=== PATIENT | male | born 1960 | race Caucasian/White ===

== ENCOUNTER 2016-10-24 09:57 | Day surgery (SDC) | payer OTHER ==
[~2016-10-24] VITALS: Ht 177.8 cm; Wt 90.7 kg
[~2016-10-24 09:57] MED LIST: ALPRAZOLAM0.25 MG PO; AMLODIPINE BESY10 MG PO; APRESOLINE100 MG PO; APRESOLINE25 MG PO; APRESOLINE50 MG PO; ASPIR 8181 M1 PO; ASPIR-LOW81 MG PO; ASPIR-TRIN325 M1 PO; Aspirin E.C. PO; CARDURA4 MG PO; CARVEDILOL25 MG PO; CATAPRES-TTS 21 EACH TD; CLINDAMYCIN HC300 MG PO; CLONIDINE1 EAC1 TD; CLOPIDOGREL75 MG PO; COREG25 M1 PO; CORTISPORIN BOTH EYES; Coreg PO; DOXAZOSIN MESYLA4 MG PO; DRONABINOL2.5 MG PO; ERGOCALCIF50000 UNIT PO; ESSENTIAL DAIL1 EACH PO; FENOFIBRATE54 M1 PO; FLORINEF ACETA0.1 MG PO; Florinef Acetate PO; HYDRALAZINE HC100 MG PO; HYDROCHLOROTHIA25 MG PO; ISORDIL,SORBITR20 MG PO; ISOSORBIDE DINI10 MG PO; ISOSORBIDE MONO20 MG PO; KEPPRA250 MG PO; LABETALOL HCL200 MG PO; LABETALOL HCL300 MG PO; LEXAPRO10 MG PO; LEXAPRO20 MG PO; LIPITOR40 MG PO; LOFIBRA54 MG PO; LOVASTATIN40 MG PO; LOW DOSE ASPIRI81 M1 PO; Lofibra PO; MEVACOR40 MG PO; Mucomyst,Mucosol 20% PO; NEPHRO-VITE,1 TABLET PO; NICOTINE PATCH1 EAC2 TD; NORMODYNE,TRAN200 MG PO; NORVASC10 MG PO; NORVASC5 MG PO; Normodyne,Trandate PO; Norvasc PO; PANTOPRAZOLE SO40 MG PO; PLAVIX; PLAVIX75 MG PO; PRAVACHOL20 MG PO; PRAVACHOL80 MG PO; PROTONIX40 MG PO; Phoslo PO; Protonix PO; RENVELA800 MG PO; SIMVASTATIN40 MG PO; TOPROL XL50 MG PO; TRICOR48 MG PO; VIT D2 PO; VITAMIN D250000 UNIT PO; VITAMIN D5000 INTUN PO; Vicodin,Lortab 5/500 PO; Vitamin D, Drisdol PO; ZESTRIL20 MG PO; ZOLOFT50 MG PO; Zestril,Prinivil PO
== END 2016-10-24 11:26 | disposition home or self-care (01) ==
LOC: CATH 09:57
DX: I15.0 Renovascular hypertension (principal); I70.1 Atherosclerosis of renal artery; I70.211 Atherosclerosis of native arteries of extremities with intermittent claudication, right leg; I70.92 Chronic total occlusion of artery of the extremities; Z86.73 Personal history of transient ischemic attack (TIA), and cerebral infarction without residual deficits; I71.4 Abdominal aortic aneurysm, without rupture
CPT/HCPCS: C1725; C1750; C1760; C1769; C1894; J1644; J2250; J3010; S0020

== ENCOUNTER 2016-10-31 14:48 | Inpatient (IN) | payer OTHER ==
[~2016-10-31] VITALS: Ht 182.9 cm; Wt 97.7 kg
[2016-10-31 16:14] LABS: BASOPHIL COUNT 0.1 K/uL (0-0.1); EOSINOPHIL (%) 3.9 % (0-5); EOSINOPHIL COUNT 0.5 K/uL (0-0.3); HEMATOCRIT 48.7 % (38.0-50.0); IMMATURE GRANULOCYTE (%) 0.3 % (0.0-0.7); IMMATURE GRANULOCYTE COUNT 0.4 K/uL; MCH 29.3 PG (29.0-34.0); MCHC 34.3 G/DL (30.0-36.0); MCV 85.6 FL (86-99); MEAN PLAT.VOLUME 9.7 uM^3 (9.0-12.4); MONOCYTE (%) 4.1 % (3-12); MONOCYTE COUNT 0.5 K/uL (0-0.8); NEUTROPHIL (%) 74.5 % (45-76); NEUTROPHIL COUNT 8.9 K/uL (1.8-6.4); PLATELET COUNT 256 K/uL (156-360); RBC DIS.WIDTH-CV 14.2 % (11.8-14.6); RBC DIS.WIDTH-SD 44.6 % (39-53); RED BLOOD COUNT 5.69 M/uL (4.00-5.50)
[2016-10-31 16:19] LABS: WHITE BLOOD COUNT 11.9 K/uL (4.1-10.2)
[2016-10-31 16:23] LABS: CHLORIDE 105 mEq/L (99-109); POTASSIUM 4.5 mEq/L (3.7-5.4); SODIUM 139 mEq/L (136-147)
[2016-10-31 16:25] LABS: GLUCOSE 126 mg/dL (70-99)
[2016-10-31 16:26] LABS: ANION GAP 8 MEQ/L (2-14)
[2016-10-31 16:27] LABS: TOTAL BILIRUBIN 0.3 mg/dL (0.0-1.0)
[2016-10-31 16:28] LABS: ALKALINE PHOSPHATASE 124 IU/L (3-129)
[2016-10-31 16:29] LABS: GFR ESTIMATE (CALCULATED) 29 mL/min/
[2016-10-31 16:30] LABS: UREA NITROGEN (BUN) 24 mg/dL (9-23)
[2016-10-31 16:35] LABS: TROP-I INTERPRETATION NEGATIVE; TROPONIN-I 0.09 ng/mL (0.0-0.30)
[2016-10-31 16:38] LABS: INTER. NORMALIZED RATIO 1.1; PROTHROMBIN TIME 10.7 (9.2-11.2); PTT 29.9 (25-32)
[2016-10-31] MEDS ORDERED: APRESOLINE50 MG PO (19:43)
[2016-10-31] MEDS ORDERED: ISOSORBIDE DINI20 MG PO (19:44)
[2016-11-01] VITALS (13 sets, daily range): BP systolic 164–2110; BP diastolic 76–111
[2016-11-01 04:28] LABS: ADD MIUA? YES; BILIRUBIN NEGATIVE; BLOOD SMALL; COLOR YELLOW ((YELLOW)); GLUCOSE (STRIP) NEGATIVE; KETONES NEGATIVE; LEUKOCYTES NEGATIVE; NITRITE NEGATIVE; PROTEIN (STRIP) 100; SPECIFIC GRAVITY 1.017 (1.000-1.030); UROBILINOGEN 0.2 MG/DL (0.2-1.0)
[2016-11-01 04:32] LABS: BACTERIA RARE /HPF; EPITHELIAL CELLS RARE /HPF; HYALINE CASTS 0-5 /LPF; MUCUS TRACE /LPF; UCUL ADDED? NO; WHITE BLOOD CELLS 0-5 /HPF (0-5)
[2016-11-01 08:05] LABS: EOSINOPHIL (%) 0.8 % (0-5); EOSINOPHIL COUNT 0.1 K/uL (0-0.3); HEMATOCRIT 48.6 % (38.0-50.0); IMMATURE GRANULOCYTE (%) 0.5 % (0.0-0.7); IMMATURE GRANULOCYTE COUNT 0.1 K/uL; LYMPHOCYTE COUNT 1.8 K/uL (1.0-2.8); MCH 30.2 PG (29.0-34.0); MCHC 34.6 G/DL (30.0-36.0); MCV 87.4 FL (86-99); MEAN PLAT.VOLUME 10.6 uM^3 (9.0-12.4); MONOCYTE (%) 6.3 % (3-12); MONOCYTE COUNT 0.8 K/uL (0-0.8); NEUTROPHIL (%) 77.8 % (45-76); NEUTROPHIL COUNT 9.6 K/uL (1.8-6.4); PLATELET COUNT 216 K/uL (156-360); RBC DIS.WIDTH-CV 14.2 % (11.8-14.6); RED BLOOD COUNT 5.56 M/uL (4.00-5.50); WHITE BLOOD COUNT 12.3 K/uL (4.1-10.2)
[2016-11-01 08:09] LABS: ALKALINE PHOSPHATASE 112 IU/L (3-129); ANION GAP 12 MEQ/L (2-14); CHLORIDE 105 MEQ/L (99-109); DIRECT BILIRUBIN 0.1 mg/dL (0.0-0.3); GFR ESTIMATE (CALCULATED) 18 mL/min/; GLUCOSE 121 mg/dL (70-99); POTASSIUM 4.7 MEQ/L (3.7-5.4); SAMPLE HEMOLYSIS CHECK 0; SAMPLE ICTERIC CHECK 0; SAMPLE LIPEMIA CHECK 0; SODIUM 139 MEQ/L (136-147); TOTAL BILIRUBIN 0.3 MG/DL (0.0-1.0); UREA NITROGEN (BUN) 33 mg/dL (9-23)
[2016-11-02] VITALS (7 sets, daily range): BP systolic 138–207; BP diastolic 73–103
[2016-11-02 08:01] LABS: HEMATOCRIT 46.2 % (38.0-50.0); MCH 30.1 PG (29.0-34.0); MCHC 34.4 G/DL (30.0-36.0); MCV 87.5 FL (86-99); PLATELET COUNT 199 K/uL (156-360); RBC DIS.WIDTH-CV 14.6 % (11.8-14.6); RBC DIS.WIDTH-SD 46.2 % (39-53); RED BLOOD COUNT 5.28 M/uL (4.00-5.50); WHITE BLOOD COUNT 14.9 K/uL (4.1-10.2)
[2016-11-02 08:43] LABS: ANION GAP 14 MEQ/L (2-14); CHLORIDE 105 MEQ/L (99-109); GFR ESTIMATE (CALCULATED) 10 mL/min/; GLUCOSE 125 mg/dL (70-99); POTASSIUM 4.2 MEQ/L (3.7-5.4); SAMPLE HEMOLYSIS CHECK 0; SAMPLE ICTERIC CHECK 0; SAMPLE LIPEMIA CHECK 0; SODIUM 139 MEQ/L (136-147)
[2016-11-02 08:52] LABS: UREA NITROGEN (BUN) 54 mg/dL (9-23)
[2016-11-03] VITALS: BP 115/59; BP 125/58; BP 128/58; BP 97/50
[2016-11-03 03:30] VITALS: BP 162/71
[2016-11-03 07:14] LABS: HEMATOCRIT 41.2 % (38.0-50.0); MCH 29.9 PG (29.0-34.0); MCHC 34.7 G/DL (30.0-36.0); MEAN PLAT.VOLUME 10.4 uM^3 (9.0-12.4); PLATELET COUNT 196 K/uL (156-360); RBC DIS.WIDTH-CV 14.7 % (11.8-14.6); RBC DIS.WIDTH-SD 46.2 % (39-53); RED BLOOD COUNT 4.79 M/uL (4.00-5.50); WHITE BLOOD COUNT 11.6 K/uL (4.1-10.2)
[2016-11-03 07:45] LABS: ANION GAP 15 MEQ/L (2-14); CHLORIDE 103 MEQ/L (99-109); GFR ESTIMATE (CALCULATED) 8 mL/min/; GLUCOSE 101 mg/dL (70-99); POTASSIUM 4.2 MEQ/L (3.7-5.4); SAMPLE HEMOLYSIS CHECK 0; SAMPLE ICTERIC CHECK 0; SAMPLE LIPEMIA CHECK 0; SODIUM 138 MEQ/L (136-147); UREA NITROGEN (BUN) 74 mg/dL (9-23)
[2016-11-03 11:20] VITALS: BP 135/65
[2016-11-03 16:50] VITALS: BP 145/67
[2016-11-03 20:45] VITALS: BP 190/90
[2016-11-04 03:38] VITALS: BP 117/77
[2016-11-04 07:03] LABS: ANION GAP 14 MEQ/L (2-14); CHLORIDE 104 MEQ/L (99-109); GFR ESTIMATE (CALCULATED) 7 mL/min/; GLUCOSE 80 mg/dL (70-99); POTASSIUM 4.3 MEQ/L (3.7-5.4); SAMPLE HEMOLYSIS CHECK 0; SAMPLE ICTERIC CHECK 0; SAMPLE LIPEMIA CHECK 0; SODIUM 135 MEQ/L (136-147); UREA NITROGEN (BUN) 90 mg/dL (9-23)
[2016-11-04 07:46] VITALS: BP 187/85
[2016-11-04 11:38] VITALS: BP 175/79
[2016-11-04 21:00] VITALS: BP 205/100
[2016-11-05] VITALS: BP 160/78
[2016-11-05 04:00] VITALS: BP 144/70
[2016-11-05 06:15] LABS: EOSINOPHIL (%) 2.9 % (0-5); EOSINOPHIL COUNT 0.2 K/uL (0-0.3); HEMATOCRIT 38.2 % (38.0-50.0); IMMATURE GRANULOCYTE (%) 0.8 % (0.0-0.7); IMMATURE GRANULOCYTE COUNT 0.1 K/uL; LYMPHOCYTE COUNT 1.6 K/uL (1.0-2.8); MCHC 34.3 G/DL (30.0-36.0); MCV 84.7 FL (86-99); MEAN PLAT.VOLUME 9.7 uM^3 (9.0-12.4); MONOCYTE (%) 4.4 % (3-12); MONOCYTE COUNT 0.3 K/uL (0-0.8); NEUTROPHIL (%) 70.4 % (45-76); NEUTROPHIL COUNT 5.3 K/uL (1.8-6.4); PLATELET COUNT 215 K/uL (156-360); RBC DIS.WIDTH-CV 14.1 % (11.8-14.6); RBC DIS.WIDTH-SD 43.7 % (39-53); RED BLOOD COUNT 4.51 M/uL (4.00-5.50)
[2016-11-05 06:23] LABS: WHITE BLOOD COUNT 7.6 K/uL (4.1-10.2)
[2016-11-05 06:46] LABS: ANION GAP 14 MEQ/L (2-14); CHLORIDE 107 MEQ/L (99-109); GFR ESTIMATE (CALCULATED) 6 mL/min/; GLUCOSE 98 mg/dL (70-99); SAMPLE HEMOLYSIS CHECK 1; SAMPLE ICTERIC CHECK 0; SAMPLE LIPEMIA CHECK 0; SODIUM 137 MEQ/L (136-147)
[2016-11-05 06:56] LABS: UREA NITROGEN (BUN) 111 mg/dL (9-23)
[2016-11-05 07:03] LABS: POTASSIUM ND MEQ/L (3.7-5.4)
[2016-11-05 08:00] VITALS: BP 201/88
[2016-11-05 08:50] LABS: POTASSIUM 5.1 MEQ/L (3.7-5.4)
[2016-11-05 10:20] LABS: TOTAL BILIRUBIN 0.3 MG/DL (0.0-1.0)
[2016-11-05 10:24] LABS: ALKALINE PHOSPHATASE 78 IU/L (3-129)
[2016-11-05 13:51] LABS: HBSG INDEX 0.11
[2016-11-05 13:52] LABS: AHBS INDEX 1.12; HEPATITIS B SURFACE ANTIBODY Nonreactive
[2016-11-05 15:45] VITALS: BP 190/95
[2016-11-05 19:00] VITALS: BP 180/91
[2016-11-05 23:54] VITALS: BP 165/71
[2016-11-06 03:58] VITALS: BP 147/67
[2016-11-06 06:04] LABS: EOSINOPHIL (%) 4.9 % (0-5); EOSINOPHIL COUNT 0.3 K/uL (0-0.3); HEMATOCRIT 39.6 % (38.0-50.0); IMMATURE GRANULOCYTE (%) 1.1 % (0.0-0.7); IMMATURE GRANULOCYTE COUNT 0.1 K/uL; LYMPHOCYTE COUNT 1.6 K/uL (1.0-2.8); MCH 29.9 PG (29.0-34.0); MCHC 35.4 G/DL (30.0-36.0); MCV 84.4 FL (86-99); MEAN PLAT.VOLUME 9.9 uM^3 (9.0-12.4); MONOCYTE (%) 8.1 % (3-12); MONOCYTE COUNT 0.5 K/uL (0-0.8); NEUTROPHIL (%) 60.2 % (45-76); NEUTROPHIL COUNT 3.7 K/uL (1.8-6.4); PLATELET COUNT 209 K/uL (156-360); RED BLOOD COUNT 4.69 M/uL (4.00-5.50); WHITE BLOOD COUNT 6.1 K/uL (4.1-10.2)
[2016-11-06 06:38] LABS: ANION GAP 11 MEQ/L (2-14); CHLORIDE 104 MEQ/L (99-109); GFR ESTIMATE (CALCULATED) 7 mL/min/; GLUCOSE 93 mg/dL (70-99); POTASSIUM 4.8 MEQ/L (3.7-5.4); SAMPLE HEMOLYSIS CHECK 0; SAMPLE ICTERIC CHECK 0; SAMPLE LIPEMIA CHECK 0; SODIUM 138 MEQ/L (136-147); UREA NITROGEN (BUN) 75 mg/dL (9-23)
[2016-11-06 10:24] VITALS: BP 148/70
[2016-11-06 11:42] VITALS: BP 138/74
[2016-11-06] MEDS ORDERED: ISOSORBIDE DINI20 MG PO (13:07)
[2016-11-06] MEDS ORDERED: APRESOLINE25 MG PO (13:10)
== END 2016-11-06 14:00 | disposition home or self-care (01) | DRG 305 ==
LOC: EME 14:48 → EDOF 19:54 → 5WEST 21:07
PROVIDERS: Emergency Medicine; Internal Medicine; Internal Medicine Nephrology; Nurse Practitioner Adult Health; Physician Assistant
DX: I16.0 Hypertensive urgency (principal); I13.0 Hypertensive heart and chronic kidney disease with heart failure and stage 1 through stage 4 chronic kidney disease, or unspecified chronic kidney disease; N18.4 Chronic kidney disease, stage 4 (severe); N17.9 Acute kidney failure, unspecified; T50.8X5A Adverse effect of diagnostic agents, initial encounter; I50.9 Heart failure, unspecified; I42.0 Dilated cardiomyopathy; I95.1 Orthostatic hypotension; E86.0 Dehydration; I69.328 Other speech and language deficits following cerebral infarction; I69.315 Cognitive social or emotional deficit following cerebral infarction; I73.9 Peripheral vascular disease, unspecified; I70.1 Atherosclerosis of renal artery; I25.10 Atherosclerotic heart disease of native coronary artery without angina pectoris; E78.5 Hyperlipidemia, unspecified; R33.9 Retention of urine, unspecified; F17.200 Nicotine dependence, unspecified, uncomplicated; Z95.0 Presence of cardiac pacemaker; Z95.5 Presence of coronary angioplasty implant and graft; Z88.0 Allergy status to penicillin; Z91.14 Patient's other noncompliance with medication regimen; Z95.820 Peripheral vascular angioplasty status with implants and grafts; Z79.02 Long term (current) use of antithrombotics/antiplatelets
CPT/HCPCS: 70450; 71010; 74176; 76770; 80048; 80053; 80069; 80076; 81003; 83605; 84484; 84999; 85025; 85027; 85610; 85730; 86706; 87040; 87340; 87493; 93005; 93306; 94799; 99281; 99285; C1894; G0378; J0360; J1644; J2250; J2270; J2405; J3010; J7030; S0020

== ENCOUNTER 2016-12-10 07:28 | Day surgery (SDC) | payer OTHER ==
[~2016-12-10] VITALS: Ht 180.3 cm; Wt 86.2 kg
[~2016-12-10 07:28] MED LIST changes: +HYDRALAZINE HCL25 MG PO; +ISOSORBIDE DINI20 MG PO; +SENSIPAR30 MG PO
[2016-12-10 09:23] LABS: METH RESISTANT S AUREUS PCR NEGATIVE (NEGATIVE); PROBE CHECK PASS; SPECIMEN PROCESSING CONTROL PASS
== END 2016-12-10 10:10 | disposition home or self-care (01) ==
LOC: CATH 07:28
PROVIDERS: Surgery
DX: T82.598A Other mechanical complication of other cardiac and vascular devices and implants, initial encounter (principal); Y83.1 Surgical operation with implant of artificial internal device as the cause of abnormal reaction of the patient, or of later complication, without mention of misadventure at the time of the procedure; N18.6 End stage renal disease; Z99.2 Dependence on renal dialysis; Z88.0 Allergy status to penicillin; Z88.8 Allergy status to other drugs, medicaments and biological substances
CPT/HCPCS: 87641; C1750; J1644; J2250; J3010; S0020

== ENCOUNTER 2017-02-18 09:13 | Day surgery (SDC) | payer OTHER ==
[~2017-02-18] VITALS: Ht 180.3 cm; Wt 86.2 kg
[2017-02-18 09:39] LABS: MCHC 34.3 G/DL (30.0-36.0); MCV 87.3 FL (86-99); MEAN PLAT.VOLUME 9.7 uM^3 (9.0-12.4); PLATELET COUNT 213 K/uL (156-360); RBC DIS.WIDTH-CV 14.6 % (11.8-14.6); RBC DIS.WIDTH-SD 46.7 % (39-53); RED BLOOD COUNT 4.24 M/uL (4.00-5.50); WHITE BLOOD COUNT 7.4 K/uL (4.1-10.2)
[2017-02-18 10:02] VITALS: BP 180/100
[2017-02-18 10:25] VITALS: BP 176/93
[2017-02-18 10:30] LABS: ANION GAP 11 MEQ/L (2-14); CHLORIDE 99 MEQ/L (99-109); GFR ESTIMATE (CALCULATED) 12 mL/min/; GLUCOSE 92 mg/dL (70-99); POTASSIUM 3.9 MEQ/L (3.7-5.4); SAMPLE HEMOLYSIS CHECK 0; SAMPLE ICTERIC CHECK 0; SAMPLE LIPEMIA CHECK 0; SODIUM 138 MEQ/L (136-147); UREA NITROGEN (BUN) 25 mg/dL (9-23)
[2017-02-18 10:52] LABS: METH RESISTANT S AUREUS PCR NEGATIVE (NEGATIVE)
[2017-02-18 10:53] LABS: PROBE CHECK PASS; SPECIMEN PROCESSING CONTROL PASS
[2017-02-18 13:57] VITALS: BP 151/82
[2017-02-18 14:41] VITALS: BP 153/74
== END 2017-02-18 14:48 | disposition home or self-care (01) ==
LOC: SDC 09:13
PROVIDERS: Surgery
PROC: 0WHG03Z Insertion of Infusion Device into Peritoneal Cavity, Open Approach (ICD-10-PCS; principal; 2017-02-18)
DX: I13.2 Hypertensive heart and chronic kidney disease with heart failure and with stage 5 chronic kidney disease, or end stage renal disease (principal); I50.42 Chronic combined systolic (congestive) and diastolic (congestive) heart failure; N18.6 End stage renal disease; I25.10 Atherosclerotic heart disease of native coronary artery without angina pectoris; E78.5 Hyperlipidemia, unspecified; I73.9 Peripheral vascular disease, unspecified; F17.210 Nicotine dependence, cigarettes, uncomplicated; Z95.810 Presence of automatic (implantable) cardiac defibrillator; Z99.2 Dependence on renal dialysis; Z79.02 Long term (current) use of antithrombotics/antiplatelets; Z86.73 Personal history of transient ischemic attack (TIA), and cerebral infarction without residual deficits
CPT/HCPCS: 80048; 85027; 87641; C1750; J0330; J2405; J2710; J3010

== ENCOUNTER 2017-03-19 12:45 | Emergency (ER) | payer OTHER | END 2017-03-19 13:12 | disposition left against medical advice (07) | LOC: EME 12:45 | DX: Z53.21 Procedure and treatment not carried out due to patient leaving prior to being seen by health care provider (principal) | CPT/HCPCS: 99281; 99282 ==

== ENCOUNTER 2017-04-09 22:17 | Emergency (ER) | payer OTHER ==
[~2017-04-09] VITALS: Ht 180.3 cm; Wt 79.7 kg
[2017-04-09 22:40] LABS: BASOPHIL COUNT 0.1 K/uL (0-0.1); EOSINOPHIL (%) 5.8 % (0-5); EOSINOPHIL COUNT 0.5 K/uL (0-0.3); HEMATOCRIT 39.7 % (38.0-50.0); IMMATURE GRANULOCYTE (%) 0.5 % (0.0-0.7); INSTRUMENT ABS NEUTROPHIL CT 5.8 K/uL; LYMPHOCYTE COUNT 1.6 K/uL (1.0-2.8); MCH 29.5 PG (29.0-34.0); MCHC 34.8 G/DL (30.0-36.0); MCV 84.8 FL (86-99); MEAN PLAT.VOLUME 9.7 uM^3 (9.0-12.4); MONOCYTE (%) 3.9 % (3-12); MONOCYTE COUNT 0.3 K/uL (0-0.8); NEUTROPHIL (%) 69.3 % (45-76); NEUTROPHIL COUNT 5.8 K/uL (1.8-6.4); PLATELET COUNT 219 K/uL (156-360); RBC DIS.WIDTH-CV 13.5 % (11.8-14.6); RED BLOOD COUNT 4.68 M/uL (4.00-5.50); WHITE BLOOD COUNT 8.4 K/uL (4.1-10.2)
[2017-04-09 22:46] LABS: INTER. NORMALIZED RATIO 1.1; PROTHROMBIN TIME 11.8 SEC (10.2-12.9)
[2017-04-09 22:49] LABS: PTT 32.8 SEC (25-37)
[2017-04-09 22:52] LABS: AMYLASE 79 IU/L (1-118); CHLORIDE 98 mEq/L (99-109); POTASSIUM 3.7 mEq/L (3.7-5.4); SODIUM 135 mEq/L (136-147)
[2017-04-09 22:54] LABS: GLUCOSE 112 mg/dL (70-99)
[2017-04-09 22:55] LABS: ANION GAP 12 MEQ/L (2-14)
[2017-04-09 22:57] LABS: SERUM ETHYL ALCOHOL < 10 mg/dL
[2017-04-09 22:58] LABS: GFR ESTIMATE (CALCULATED) 11 mL/min/; UREA NITROGEN (BUN) 23 mg/dL (9-23)
[2017-04-09] MEDS ORDERED: CALPHRON667 MG PO (22:58)
[2017-04-09 23:01] LABS: LIPASE 21 U/L (1.0-51.0)
[2017-04-09 23:02] LABS: TROP-I INTERPRETATION NEGATIVE
[2017-04-10 00:12] VITALS: BP 167/98
== END 2017-04-10 00:12 | disposition short-term general hospital (02) ==
LOC: EME 22:17
PROVIDERS: Emergency Medicine
DX: I63.50 Cerebral infarction due to unspecified occlusion or stenosis of unspecified cerebral artery (principal); G81.94 Hemiplegia, unspecified affecting left nondominant side; Z86.73 Personal history of transient ischemic attack (TIA), and cerebral infarction without residual deficits; E78.5 Hyperlipidemia, unspecified; F32.9 Major depressive disorder, single episode, unspecified; I11.0 Hypertensive heart disease with heart failure; I50.9 Heart failure, unspecified; Z88.0 Allergy status to penicillin; F17.200 Nicotine dependence, unspecified, uncomplicated; R47.01 Aphasia
CPT/HCPCS: 70450; 70496; 80048; 81003; 82150; 83690; 84484; 85025; 85610; 85730; 86900; 86901; 93005; 99281; 99285; G0480; J2997; J7050

== ENCOUNTER → 2017-05-06 | Outpatient (CLI) | payer OTHER ==
[~2017-05-06] MED LIST changes: +AMLODIPINE BESY10 MG GT; +ASPIRIN81 M2 GT; +CALCIDOL8000 UNIT/ GT; +CALPHRON667 MG PO; +COREG25 M1 GT; +FULL SPECTRUM0.8 MG GT; +HEPARIN SO5000 UNIT3 SC; +LIPITOR40 MG GT; +MIRALAX17 GM GT; +NICODERM CQ1 EAC1 TD; +PREVACID30 MG GT; +PRINIVIL10 MG GT; +PROTONIX40 MG GT; +PROZAC20 MG/5 ML GT; +SENEXON GT; +SEVELAMER CARB0.8 GM GT
== END | disposition designated cancer center or children's hospital (05) ==
LOC: AMB 10:30
PROC: 0D20XUZ Change Feeding Device in Upper Intestinal Tract, External Approach (ICD-10-PCS; principal; 2017-05-06)
DX: Z46.59 Encounter for fitting and adjustment of other gastrointestinal appliance and device (principal); R13.10 Dysphagia, unspecified; I10 Essential (primary) hypertension
CPT/HCPCS: 43760; 71010; 99215

== ENCOUNTER 2017-05-08 09:16 | Day surgery (SDC) | payer OTHER ==
[~2017-05-08] VITALS: Ht 180.3 cm; Wt 86.0 kg
[~2017-05-08 09:16] MED LIST changes: -HEPARIN SO5000 UNIT3 SC
[2017-05-08 09:36] VITALS: BP 158/58
[2017-05-08 09:41] LABS: HEMATOCRIT 32.3 % (38.0-50.0); MCH 31.1 PG (29.0-34.0); MCHC 33.1 G/DL (30.0-36.0); MCV 93.9 FL (86-99); MEAN PLAT.VOLUME 9.2 uM^3 (9.0-12.4); PLATELET COUNT 185 K/uL (156-360); RBC DIS.WIDTH-CV 16.6 % (11.8-14.6); RED BLOOD COUNT 3.44 M/uL (4.00-5.50); WHITE BLOOD COUNT 4.6 K/uL (4.1-10.2)
[2017-05-08] MEDS ORDERED: HEPARIN SO5000 UNIT3 SC (09:55)
[2017-05-08 10:03] LABS: ANION GAP 6 MEQ/L (2-14); CHLORIDE 105 MEQ/L (99-109); POTASSIUM 3.6 MEQ/L (3.7-5.4); SAMPLE HEMOLYSIS CHECK 0; SAMPLE ICTERIC CHECK 0; SAMPLE LIPEMIA CHECK 0; SODIUM 142 MEQ/L (136-147)
[2017-05-08 10:09] LABS: GFR ESTIMATE (CALCULATED) 14 mL/min/; GLUCOSE 105 mg/dL (70-99); UREA NITROGEN (BUN) 25 mg/dL (9-23)
[2017-05-08 10:55] LABS: METH RESISTANT S AUREUS PCR NEGATIVE (NEGATIVE)
[2017-05-08 10:59] LABS: PROBE CHECK PASS; SPECIMEN PROCESSING CONTROL PASS
[2017-05-08 14:15] VITALS: BP 151/79
[2017-05-08 15:15] VITALS: BP 145/70
== END 2017-05-08 15:16 | disposition home or self-care (01) ==
LOC: SDC 09:16
PROVIDERS: Surgery
DX: I69.391 Dysphagia following cerebral infarction (principal); I12.0 Hypertensive chronic kidney disease with stage 5 chronic kidney disease or end stage renal disease; N18.6 End stage renal disease; Z99.2 Dependence on renal dialysis; E78.00 Pure hypercholesterolemia, unspecified; G40.409 Other generalized epilepsy and epileptic syndromes, not intractable, without status epilepticus; Z88.0 Allergy status to penicillin; Z87.891 Personal history of nicotine dependence; Z82.3 Family history of stroke; Z82.5 Family history of asthma and other chronic lower respiratory diseases; Z83.3 Family history of diabetes mellitus
CPT/HCPCS: 80048; 85027; 87641; J2405; J3010

== ENCOUNTER 2017-05-11 14:08 | Day surgery (SDC) | payer OTHER ==
[~2017-05-11 14:08] MED LIST changes: +HEPARIN SO5000 UNIT3 SC
== END 2017-05-11 17:29 | disposition designated cancer center or children's hospital (05) ==
LOC: CATH 14:08
DX: T82.514A Breakdown (mechanical) of infusion catheter, initial encounter (principal); Y84.8 Other medical procedures as the cause of abnormal reaction of the patient, or of later complication, without mention of misadventure at the time of the procedure; N18.6 End stage renal disease; Z99.2 Dependence on renal dialysis
CPT/HCPCS: C1750; J0690; J1644; J2250; J3010; S0020

== ENCOUNTER 2017-06-04 12:43 | Emergency (ER) | payer OTHER ==
[~2017-06-04] VITALS: Ht 182.9 cm; Wt 77.4 kg
[2017-06-04 14:12] LABS: CHLORIDE 99 mEq/L (99-109); MCH 29.5 PG (29.0-34.0); MCV 92.3 FL (86-99); MEAN PLAT.VOLUME 9.7 uM^3 (9.0-12.4); PLATELET COUNT 166 K/uL (156-360); POTASSIUM 3.7 mEq/L (3.7-5.4); RBC DIS.WIDTH-CV 14.4 % (11.8-14.6); RBC DIS.WIDTH-SD 49.1 % (39-53); SODIUM 135 mEq/L (136-147); WHITE BLOOD COUNT 4.9 K/uL (4.1-10.2)
[2017-06-04 14:13] LABS: RED BLOOD COUNT 4.44 M/uL (4.00-5.50)
[2017-06-04 14:14] LABS: GLUCOSE 88 mg/dL (70-99)
[2017-06-04 14:15] LABS: ANION GAP 10 MEQ/L (2-14)
[2017-06-04 14:18] LABS: GFR ESTIMATE (CALCULATED) 14 mL/min/
[2017-06-04 14:19] LABS: UREA NITROGEN (BUN) 19 mg/dL (9-23)
[2017-06-04 14:24] LABS: TROP-I INTERPRETATION NEGATIVE; TROPONIN-I 0.09 ng/mL (0.0-0.30)
[2017-06-04 16:37] VITALS: BP 119/66
== END 2017-06-04 18:35 | disposition designated cancer center or children's hospital (05) ==
LOC: EME 12:43
DX: R55 Syncope and collapse (principal); I69.354 Hemiplegia and hemiparesis following cerebral infarction affecting left non-dominant side; E78.5 Hyperlipidemia, unspecified; R56.9 Unspecified convulsions; F17.200 Nicotine dependence, unspecified, uncomplicated; Z93.1 Gastrostomy status; Z87.442 Personal history of urinary calculi; Z88.0 Allergy status to penicillin
CPT/HCPCS: 70450; 71020; 80048; 81003; 84484; 85027; 93005; 99281; 99284

== ENCOUNTER 2017-07-01 10:00 | Day surgery (SDC) | payer OTHER ==
[~2017-07-01] VITALS: Ht 175.3 cm; Wt 68.5 kg
[2017-07-01 11:51] LABS: METH RESISTANT S AUREUS PCR NEGATIVE (NEGATIVE); PROBE CHECK PASS; SPECIMEN PROCESSING CONTROL PASS
[2017-07-01 16:37] LABS: BASOPHIL COUNT 0.1 K/uL (0-0.1); EOSINOPHIL (%) 11.2 % (0-5); EOSINOPHIL COUNT 0.8 K/uL (0-0.3); HEMATOCRIT 38.1 % (38.0-50.0); IMMATURE GRANULOCYTE (%) 0.3 % (0.0-0.7); INSTRUMENT ABS NEUTROPHIL CT 4.1 K/uL; MCH 30.6 PG (29.0-34.0); MCHC 32.5 G/DL (30.0-36.0); MCV 94.1 FL (86-99); MEAN PLAT.VOLUME 10.7 uM^3 (9.0-12.4); MONOCYTE (%) 4.4 % (3-12); MONOCYTE COUNT 0.3 K/uL (0-0.8); NEUTROPHIL (%) 55.6 % (45-76); NEUTROPHIL COUNT 4.1 K/uL (1.8-6.4); PLATELET COUNT 163 K/uL (156-360); RBC DIS.WIDTH-CV 13.9 % (11.8-14.6); RBC DIS.WIDTH-SD 48.2 % (39-53); RED BLOOD COUNT 4.05 M/uL (4.00-5.50); WHITE BLOOD COUNT 7.3 K/uL (4.1-10.2)
[2017-07-01 16:49] LABS: ANION GAP 9 MEQ/L (2-14); CHLORIDE 102 MEQ/L (99-109); SAMPLE HEMOLYSIS CHECK 0; SAMPLE ICTERIC CHECK 0; SAMPLE LIPEMIA CHECK 0; SODIUM 139 MEQ/L (136-147)
[2017-07-01 16:55] LABS: GFR ESTIMATE (CALCULATED) 10 mL/min/; GLUCOSE 90 mg/dL (70-99); UREA NITROGEN (BUN) 54 mg/dL (9-23)
== END 2017-07-01 15:10 | disposition home or self-care (01) ==
LOC: CATH 10:00
PROVIDERS: Internal Medicine Nephrology; Surgery
DX: T82.41XA Breakdown (mechanical) of vascular dialysis catheter, initial encounter (principal); I12.0 Hypertensive chronic kidney disease with stage 5 chronic kidney disease or end stage renal disease; N18.6 End stage renal disease; Z99.2 Dependence on renal dialysis; E78.00 Pure hypercholesterolemia, unspecified; I25.10 Atherosclerotic heart disease of native coronary artery without angina pectoris; F32.9 Major depressive disorder, single episode, unspecified; G40.409 Other generalized epilepsy and epileptic syndromes, not intractable, without status epilepticus; Z86.73 Personal history of transient ischemic attack (TIA), and cerebral infarction without residual deficits; Z88.0 Allergy status to penicillin; Z95.0 Presence of cardiac pacemaker
CPT/HCPCS: 80048; 85025; 87641; C1788; J0690; J1644; J2250; J3010; S0020

== ENCOUNTER 2017-08-26 09:38 | Day surgery (SDC) | payer OTHER ==
[~2017-08-26] VITALS: Ht 177.8 cm; Wt 68.0 kg
[~2017-08-26 09:38] MED LIST changes: -ASPIRIN81 M2 GT; -COREG25 M1 GT; +FLUOXETINE HCL20 M1 PO; -LIPITOR40 MG GT; +LO-DOSE ASPIRIN81 M1 PO; +LYRICA25 MG PO; -MIRALAX17 GM GT; +MIRALAX17 GM PO; +MULTIVITAMIN1 EAC2 PO; -PRINIVIL10 MG GT; +PRINIVIL20 MG PO; -PROZAC20 MG/5 ML GT; +RENVELA2.4 GM GT; +TYLENOL EXTRA500 MG PO
[2017-08-26 10:07] LABS: HEMATOCRIT 38.3 % (38.0-50.0); MCH 29.3 PG (29.0-34.0); MCHC 32.6 G/DL (30.0-36.0); MCV 89.9 FL (86-99); RBC DIS.WIDTH-CV 13.3 % (11.8-14.6); RBC DIS.WIDTH-SD 43.8 % (39-53); RED BLOOD COUNT 4.26 M/uL (4.00-5.50); WHITE BLOOD COUNT 8.1 K/uL (4.1-10.2)
[2017-08-26 10:15] LABS: CHLORIDE 103 mEq/L (99-109); POTASSIUM 4.9 mEq/L (3.7-5.4); SODIUM 141 mEq/L (136-147)
[2017-08-26 10:16] LABS: GLUCOSE 83 mg/dL (70-99)
[2017-08-26 10:18] LABS: ANION GAP 17 MEQ/L (2-14)
[2017-08-26 10:20] LABS: GFR ESTIMATE (CALCULATED) 7 mL/min/
[2017-08-26 10:21] LABS: UREA NITROGEN (BUN) 35 mg/dL (9-23)
[2017-08-26 10:44] VITALS: BP 101/66
[2017-08-26 10:52] LABS: HEMATOLOGY COMMENT 1 SMEAR COMPATIBLE; MEAN PLAT.VOLUME 10.8 uM^3 (9.0-12.4); PLAT.SUFFICIENCY ADEQUATE; PLATELET COUNT 167 K/uL (156-360)
[2017-08-26 11:20] LABS: METH RESISTANT S AUREUS PCR NEGATIVE (NEGATIVE)
[2017-08-26 11:27] LABS: PROBE CHECK PASS; SPECIMEN PROCESSING CONTROL PASS
[2017-08-26] MEDS ORDERED: NORCO 5/3251 TABLET PO (14:46)
[2017-08-26 16:05] VITALS: BP 121/74
[2017-08-26 19:29] VITALS: BP 114/72
[2017-08-26 23:16] VITALS: BP 119/68
[2017-08-27 03:25] VITALS: BP 121/70
[2017-08-27 08:48] VITALS: BP 118/71
[2017-08-27 11:41] LABS: POINT-OF-CARE METER ID UU14314084
[2017-08-27 15:28] VITALS: BP 111/78
[2017-08-27 20:38] VITALS: BP 124/67
[2017-08-28] VITALS: BP 129/68
[2017-08-28 04:20] VITALS: BP 113/53
[2017-08-28 08:26] LABS: ANION GAP 8 MEQ/L (2-14); CHLORIDE 104 MEQ/L (99-109); SAMPLE HEMOLYSIS CHECK 0; SAMPLE ICTERIC CHECK 0; SAMPLE LIPEMIA CHECK 0; SODIUM 141 MEQ/L (136-147)
[2017-08-28 08:27] LABS: POTASSIUM 3.6 MEQ/L (3.7-5.4)
[2017-08-28 08:31] LABS: GFR ESTIMATE (CALCULATED) 8 mL/min/ (58.99-99999); UREA NITROGEN (BUN) 33 mg/dL (9-23)
[2017-08-28 08:34] LABS: GLUCOSE 115 mg/dL (70-99)
[2017-08-28 08:39] LABS: BASOPHIL COUNT 0.1 K/uL (0-0.1); EOSINOPHIL (%) 8.6 % (0-5); EOSINOPHIL COUNT 0.5 K/uL (0-0.3); HEMATOCRIT 26.6 % (38.0-50.0); IMMATURE GRANULOCYTE (%) 0.4 % (0.0-0.7); LYMPHOCYTE COUNT 1.6 K/uL (1.0-2.8); MCH 29.4 PG (29.0-34.0); MCHC 32.7 G/DL (30.0-36.0); MCV 89.9 FL (86-99); MEAN PLAT.VOLUME 11.2 uM^3 (9.0-12.4); MONOCYTE (%) 5.8 % (3-12); MONOCYTE COUNT 0.3 K/uL (0-0.8); NEUTROPHIL (%) 55.5 % (45-76); PLATELET COUNT 153 K/uL (156-360); RBC DIS.WIDTH-CV 13.3 % (11.8-14.6); RBC DIS.WIDTH-SD 44.4 % (39-53); RED BLOOD COUNT 2.96 M/uL (4.00-5.50); WHITE BLOOD COUNT 5.5 K/uL (4.1-10.2)
== END 2017-08-28 12:35 | disposition home or self-care (01) ==
LOC: SDC 09:38 → ENRESERV 14:48 → 2SOUTH 14:48 → 2EASTP 14:48 → ENRESERV 14:55 → SDC 15:16 → 2EASTP 15:42 → 2EAST 08-27 23:34
PROVIDERS: Internal Medicine Nephrology; Surgery
DX: I12.0 Hypertensive chronic kidney disease with stage 5 chronic kidney disease or end stage renal disease (principal); N18.6 End stage renal disease; Z99.2 Dependence on renal dialysis; I25.10 Atherosclerotic heart disease of native coronary artery without angina pectoris; E78.4 Other hyperlipidemia; R11.2 Nausea with vomiting, unspecified; G40.409 Other generalized epilepsy and epileptic syndromes, not intractable, without status epilepticus; Z86.73 Personal history of transient ischemic attack (TIA), and cerebral infarction without residual deficits; Z95.0 Presence of cardiac pacemaker; Z88.0 Allergy status to penicillin; Z87.891 Personal history of nicotine dependence
CPT/HCPCS: 80048; 80069; 82948; 85025; 85027; 87641; G0257; G0378; J0690; J1644; J3010; J7040

== ENCOUNTER 2017-11-02 10:42 | Observation (INO) | payer OTHER ==
[~2017-11-02] VITALS: Ht 175.3 cm; Wt 63.4 kg
[~2017-11-02 10:42] MED LIST changes: +NORCO 5/3251 TABLET PO; +TYLENOL ARTHRI650 MG PO; -TYLENOL EXTRA500 MG PO
[2017-11-02 12:20] LABS: BASOPHIL (%) 0.6 % (0-1); BASOPHIL COUNT 0.1 K/uL (0-0.1); EOSINOPHIL (%) 3.8 % (0-5); EOSINOPHIL COUNT 0.4 K/uL (0-0.3); HEMATOCRIT 44.4 % (38.0-50.0); HEMOGLOBIN 14.3 G/DL (12.5-16.6); IMMATURE GRANULOCYTE (%) 0.6 % (0.0-0.7); LYMPHOCYTE (%) 21.4 % (15-42); LYMPHOCYTE COUNT 2.3 K/uL (1.0-2.8); MCH 30.8 PG (29.0-34.0); MCHC 32.2 G/DL (30.0-36.0); MCV 95.7 FL (86-99); MONOCYTE (%) 3.9 % (3-12); MONOCYTE COUNT 0.4 K/uL (0-0.8); NEUTROPHIL (%) 69.7 % (45-76); NEUTROPHIL COUNT 7.6 K/uL (1.8-6.4); PLATELET COUNT 263 K/uL (156-360); RBC DIS.WIDTH-CV 13.7 % (11.8-14.6); RBC DIS.WIDTH-SD 48.3 % (39-53); RED BLOOD COUNT 4.64 M/uL (4.00-5.50); WHITE BLOOD COUNT 10.9 K/uL (4.1-10.2)
[2017-11-02 12:29] LABS: INTER. NORMALIZED RATIO 1.1
[2017-11-02 12:30] LABS: CHLORIDE 98 mEq/L (99-109); POTASSIUM 4.8 mEq/L (3.7-5.4); SODIUM 141 mEq/L (136-147)
[2017-11-02 12:32] LABS: GLUCOSE 83 mg/dL (70-99)
[2017-11-02 12:36] LABS: CREATININE 10.7 mg/dL (0.6-1.3); GFR ESTIMATE (CALCULATED) 5 mL/min/ (58.99-99999)
[2017-11-02 12:37] LABS: UREA NITROGEN (BUN) 66 mg/dL (9-23)
[2017-11-02 12:48] LABS: APPEARANCE CLOUDY ((CLEAR)); BILIRUBIN SMALL; BLOOD MODERATE; COLOR YELLOW ((YELLOW)); GLUCOSE (STRIP) NEGATIVE; KETONES TRACE; LEUKOCYTES NEGATIVE; NITRITE NEGATIVE; PROTEIN (STRIP) 300; UROBILINOGEN 0.2 MG/DL (0.2-1.0)
[2017-11-02 13:10] LABS: WHITE BLOOD CELLS 0-5 /HPF (0-5)
[2017-11-02 13:11] LABS: BACTERIA 2+ /HPF; EPITHELIAL CELLS 1+ /HPF; MUCUS NONE SEEN /LPF
[2017-11-02 13:12] LABS: COARSE GRANULAR CASTS 0-5 /LPF; HYALINE CASTS 0-5 /LPF
[2017-11-02 17:24] LABS: TROP-I INTERPRETATION NEGATIVE; TROPONIN-I 0.07 ng/mL (0.0-0.30)
[2017-11-02 19:07] VITALS: BP 100/59
[2017-11-02 23:48] VITALS: BP 95/58
[2017-11-03 07:18] VITALS: BP 101/58
[2017-11-03 08:49] LABS: HEMATOCRIT 35.3 % (38.0-50.0); MCV 96.7 FL (86-99); PLATELET COUNT 198 K/uL (156-360); RBC DIS.WIDTH-CV 13.4 % (11.8-14.6); RBC DIS.WIDTH-SD 48.1 % (39-53); WHITE BLOOD COUNT 6.2 K/uL (4.1-10.2)
[2017-11-03 08:50] LABS: CHLORIDE 106 MEQ/L (99-109); GLUCOSE 83 mg/dL (70-99); POTASSIUM 4.4 MEQ/L (3.7-5.4); SODIUM 142 MEQ/L (136-147)
[2017-11-03 08:52] LABS: CREATININE 5.5 MG/DL (0.6-1.3); HEMOGLOBIN 11.3 G/DL (12.5-16.6); RED BLOOD COUNT 3.65 M/uL (4.00-5.50); UREA NITROGEN (BUN) 26 mg/dL (9-23)
[2017-11-03 08:53] LABS: GFR ESTIMATE (CALCULATED) 11 mL/min/ (58.99-99999)
[2017-11-03 11:49] VITALS: BP 107/68
[2017-11-03 15:56] VITALS: BP 101/71
[2017-11-03 20:00] VITALS: BP 102/57
[2017-11-04 00:49] VITALS: BP 115/54
[2017-11-04 04:34] VITALS: BP 180/64
[2017-11-04 07:25] VITALS: BP 135/60
[2017-11-04 10:55] LABS: BASOPHIL (%) 0.8 % (0-1); BASOPHIL COUNT 0.1 K/uL (0-0.1); EOSINOPHIL (%) 6.4 % (0-5); EOSINOPHIL COUNT 0.4 K/uL (0-0.3); HEMATOCRIT 38.2 % (38.0-50.0); HEMOGLOBIN 12.2 G/DL (12.5-16.6); IMMATURE GRANULOCYTE (%) 0.5 % (0.0-0.7); LYMPHOCYTE (%) 24.8 % (15-42); LYMPHOCYTE COUNT 1.5 K/uL (1.0-2.8); MCH 30.3 PG (29.0-34.0); MCHC 31.9 G/DL (30.0-36.0); MCV 94.8 FL (86-99); MONOCYTE (%) 5.5 % (3-12); MONOCYTE COUNT 0.3 K/uL (0-0.8); NEUTROPHIL COUNT 3.7 K/uL (1.8-6.4); PLATELET COUNT 203 K/uL (156-360); RBC DIS.WIDTH-CV 13.3 % (11.8-14.6); RBC DIS.WIDTH-SD 46.9 % (39-53); RED BLOOD COUNT 4.03 M/uL (4.00-5.50)
[2017-11-04 11:13] LABS: CHLORIDE 104 MEQ/L (99-109); POTASSIUM 3.6 MEQ/L (3.7-5.4); SODIUM 140 MEQ/L (136-147); TOTAL BILIRUBIN 0.3 MG/DL (0.0-1.0)
[2017-11-04 11:25] VITALS: BP 132/60
[2017-11-04 11:32] LABS: ALKALINE PHOSPHATASE 89 IU/L (3-129); ALT (GPT) 6 IU/L (3-49); AST (GOT) 8 IU/L (2-34); GFR ESTIMATE (CALCULATED) 9 mL/min/ (58.99-99999); GLUCOSE 85 mg/dL (70-99); TOTAL PROTEIN 6.4 G/DL (6.4-8.3)
[2017-11-04 11:36] LABS: CREATININE 6.7 MG/DL (0.6-1.3); UREA NITROGEN (BUN) 41 mg/dL (9-23)
[2017-11-04 17:33] VITALS: BP 131/82
[2017-11-04 20:00] VITALS: BP 161/68
[2017-11-05 00:32] VITALS: BP 121/60
[2017-11-05 07:24] VITALS: BP 127/61
[2017-11-05 09:53] LABS: BASOPHIL (%) 0.7 % (0-1); EOSINOPHIL (%) 6.7 % (0-5); EOSINOPHIL COUNT 0.3 K/uL (0-0.3); HEMATOCRIT 34.4 % (38.0-50.0); HEMOGLOBIN 10.7 G/DL (12.5-16.6); IMMATURE GRANULOCYTE (%) 0.7 % (0.0-0.7); LYMPHOCYTE (%) 28.6 % (15-42); LYMPHOCYTE COUNT 1.3 K/uL (1.0-2.8); MCHC 31.1 G/DL (30.0-36.0); MCV 96.4 FL (86-99); MONOCYTE (%) 7.4 % (3-12); MONOCYTE COUNT 0.3 K/uL (0-0.8); NEUTROPHIL (%) 55.9 % (45-76); NEUTROPHIL COUNT 2.6 K/uL (1.8-6.4); PLATELET COUNT 192 K/uL (156-360); RBC DIS.WIDTH-CV 13.2 % (11.8-14.6); RBC DIS.WIDTH-SD 47.2 % (39-53); RED BLOOD COUNT 3.57 M/uL (4.00-5.50); WHITE BLOOD COUNT 4.6 K/uL (4.1-10.2)
[2017-11-05 11:15] LABS: ALBUMIN 3.7 G/DL (3.2-4.8); ALKALINE PHOSPHATASE 74 IU/L (3-129); ALT (GPT) 7 IU/L (3-49); CHLORIDE 103 MEQ/L (99-109); GLUCOSE 103 mg/dL (70-99); SODIUM 140 MEQ/L (136-147); TOTAL BILIRUBIN 0.3 MG/DL (0.0-1.0); TOTAL PROTEIN 5.6 G/DL (6.4-8.3); UREA NITROGEN (BUN) 24 mg/dL (9-23)
[2017-11-05 11:16] LABS: AST (GOT) 14 IU/L (2-34); CREATININE 4.3 MG/DL (0.6-1.3); GFR ESTIMATE (CALCULATED) 15 mL/min/ (58.99-99999)
[2017-11-05 12:24] VITALS: BP 114/67
[2017-11-05 17:06] VITALS: BP 121/68
[2017-11-05 19:00] VITALS: BP 135/70
[2017-11-06 00:34] VITALS: BP 119/60
[2017-11-06 05:12] LABS: BASOPHIL (%) 0.9 % (0-1); BASOPHIL COUNT 0.1 K/uL (0-0.1); EOSINOPHIL (%) 4.1 % (0-5); EOSINOPHIL COUNT 0.2 K/uL (0-0.3); IMMATURE GRANULOCYTE (%) 0.5 % (0.0-0.7); LYMPHOCYTE (%) 20.7 % (15-42); LYMPHOCYTE COUNT 1.2 K/uL (1.0-2.8); MCH 30.5 PG (29.0-34.0); MCHC 32.4 G/DL (30.0-36.0); MCV 94.2 FL (86-99); MONOCYTE (%) 5.3 % (3-12); MONOCYTE COUNT 0.3 K/uL (0-0.8); NEUTROPHIL (%) 68.5 % (45-76); PLATELET COUNT 195 K/uL (156-360); RBC DIS.WIDTH-CV 13.2 % (11.8-14.6); RBC DIS.WIDTH-SD 45.5 % (39-53); RED BLOOD COUNT 3.61 M/uL (4.00-5.50); WHITE BLOOD COUNT 5.8 K/uL (4.1-10.2)
[2017-11-06 05:38] LABS: CHLORIDE 101 MEQ/L (99-109); GFR ESTIMATE (CALCULATED) 11 mL/min/ (58.99-99999); GLUCOSE 91 mg/dL (70-99); POTASSIUM 3.8 MEQ/L (3.7-5.4); SODIUM 142 MEQ/L (136-147); UREA NITROGEN (BUN) 36 mg/dL (9-23)
[2017-11-06 05:39] LABS: CREATININE 5.6 MG/DL (0.6-1.3)
[2017-11-06 15:51] VITALS: BP 144/76
[2017-11-06 20:00] VITALS: BP 134/73
[2017-11-06 23:42] VITALS: BP 135/62
[2017-11-07 08:00] VITALS: BP 125/74
[2017-11-07 11:29] VITALS: BP 129/75
[2017-11-07] MEDS ORDERED: MIRTAZAPINE15 MG PO (12:54)
== END 2017-11-07 17:11 | disposition home or self-care (01) ==
LOC: EME 10:42 → EDOF 15:15 → 5WEST 15:15 → EDOF 15:15 → ENRESERV 15:18 → 5WEST 18:53
PROVIDERS: Emergency Medicine; Hospitalist; Physician Assistant
DX: R53.1 Weakness (principal); F32.9 Major depressive disorder, single episode, unspecified; I12.0 Hypertensive chronic kidney disease with stage 5 chronic kidney disease or end stage renal disease; N18.6 End stage renal disease; Z99.2 Dependence on renal dialysis; E86.0 Dehydration; T82.590A Other mechanical complication of surgically created arteriovenous fistula, initial encounter; I70.201 Unspecified atherosclerosis of native arteries of extremities, right leg; I65.23 Occlusion and stenosis of bilateral carotid arteries; R53.83 Other fatigue; I69.328 Other speech and language deficits following cerebral infarction; I70.1 Atherosclerosis of renal artery; Z98.890 Other specified postprocedural states; R32 Unspecified urinary incontinence; E78.5 Hyperlipidemia, unspecified; I49.5 Sick sinus syndrome; Z95.0 Presence of cardiac pacemaker; Z87.891 Personal history of nicotine dependence; Z91.041 Radiographic dye allergy status; Z88.0 Allergy status to penicillin; Z88.8 Allergy status to other drugs, medicaments and biological substances; Z79.82 Long term (current) use of aspirin; Z93.1 Gastrostomy status; R63.0 Anorexia; Z82.5 Family history of asthma and other chronic lower respiratory diseases; Z82.0 Family history of epilepsy and other diseases of the nervous system; Y83.2 Surgical operation with anastomosis, bypass or graft as the cause of abnormal reaction of the patient, or of later complication, without mention of misadventure at the time of the procedure
CPT/HCPCS: 70450; 71045; 80048; 80053; 81003; 83605; 83735; 84484; 85025; 85027; 85610; 87040; 87086; 92610 GN; 93005; 93880; 93925; 97530 GO; 97530 GP; 99281; 99283; C1725; C1769; C1894; G0378; G8978 GP CM; G8979 GP CK; G8980 GP CM; G8987 GO CM; G8988 GO CK; J0690; J0692; J1644; J2405; J3010; J3370; J7030; P9047

== ENCOUNTER 2017-12-03 14:18 | Emergency (ER) | payer OTHER ==
[~2017-12-03] VITALS: Ht 175.3 cm; Wt 60.6 kg
[~2017-12-03 14:18] MED LIST changes: +MIRTAZAPINE15 MG PO
[2017-12-03 15:45] LABS: HEMATOCRIT 39.8 % (38.0-50.0); HEMOGLOBIN 12.9 G/DL (12.5-16.6); MCH 30.6 PG (29.0-34.0); MCHC 32.4 G/DL (30.0-36.0); MCV 94.5 FL (86-99); PLATELET COUNT 232 K/uL (156-360); RBC DIS.WIDTH-CV 13.2 % (11.8-14.6); RBC DIS.WIDTH-SD 45.4 % (39-53); RED BLOOD COUNT 4.21 M/uL (4.00-5.50); WHITE BLOOD COUNT 11.8 K/uL (4.1-10.2)
[2017-12-03 15:54] LABS: CHLORIDE 95 mEq/L (99-109); POTASSIUM 4.2 mEq/L (3.7-5.4); SODIUM 141 mEq/L (136-147)
[2017-12-03 15:56] LABS: GLUCOSE 85 mg/dL (70-99)
[2017-12-03 16:00] LABS: CREATININE 6.8 mg/dL (0.6-1.3); GFR ESTIMATE (CALCULATED) 9 mL/min/ (58.99-99999)
[2017-12-03 16:01] LABS: UREA NITROGEN (BUN) 39 mg/dL (9-23)
[2017-12-03 18:27] VITALS: BP 128/78
== END 2017-12-04 | disposition home or self-care (01) ==
LOC: EME → EDBD 14:18 → EME 12-04
PROVIDERS: Emergency Medicine Emergency Medical Services
PROC: 0D20XUZ Change Feeding Device in Upper Intestinal Tract, External Approach (ICD-10-PCS; principal; 2017-12-03)
DX: K94.23 Gastrostomy malfunction (principal); E86.0 Dehydration; E46 Unspecified protein-calorie malnutrition; Z86.73 Personal history of transient ischemic attack (TIA), and cerebral infarction without residual deficits; I50.9 Heart failure, unspecified; E78.5 Hyperlipidemia, unspecified; F41.9 Anxiety disorder, unspecified; F32.9 Major depressive disorder, single episode, unspecified; Z99.2 Dependence on renal dialysis; Z87.442 Personal history of urinary calculi; F17.200 Nicotine dependence, unspecified, uncomplicated; Z79.82 Long term (current) use of aspirin; Z88.0 Allergy status to penicillin; Z88.8 Allergy status to other drugs, medicaments and biological substances; Z91.041 Radiographic dye allergy status
CPT/HCPCS: 80048; 85027; 99281; 99285; J7040

== ENCOUNTER 2017-12-05 14:20 | Inpatient (IN) | payer OTHER ==
[~2017-12-05] VITALS: Ht 180.3 cm; Wt 69.0 kg
[2017-12-05 15:18] LABS: HEMATOCRIT 34.1 % (38.0-50.0); HEMOGLOBIN 11.3 G/DL (12.5-16.6); MCH 30.6 PG (29.0-34.0); MCHC 33.1 G/DL (30.0-36.0); MCV 92.4 FL (86-99); PLATELET COUNT 186 K/uL (156-360); RBC DIS.WIDTH-CV 13.2 % (11.8-14.6); RBC DIS.WIDTH-SD 44.8 % (39-53); RED BLOOD COUNT 3.69 M/uL (4.00-5.50); WHITE BLOOD COUNT 8.6 K/uL (4.1-10.2)
[2017-12-05 15:24] LABS: INTER. NORMALIZED RATIO 1.1
[2017-12-05 15:29] LABS: ALBUMIN 3.7 g/dL (3.2-4.8); CHLORIDE 99 mEq/L (99-109); POTASSIUM 3.9 mEq/L (3.7-5.4); SODIUM 139 mEq/L (136-147)
[2017-12-05 15:31] LABS: GLUCOSE 91 mg/dL (70-99); TOTAL PROTEIN 6.6 g/dL (6.4-8.3)
[2017-12-05 15:33] LABS: TOTAL BILIRUBIN 0.3 mg/dL (0.0-1.0)
[2017-12-05 15:35] LABS: ALKALINE PHOSPHATASE 100 IU/L (3-129); GFR ESTIMATE (CALCULATED) 10 mL/min/ (58.99-99999)
[2017-12-05 15:36] LABS: UREA NITROGEN (BUN) 27 mg/dL (9-23)
[2017-12-05 15:37] LABS: AST (GOT) 17 IU/L (2-34)
[2017-12-05 15:38] LABS: ALT (GPT) 15 IU/L (3-49)
[2017-12-05 15:39] LABS: TROP-I INTERPRETATION NEGATIVE; TROPONIN-I 0.06 ng/mL (0.0-0.30)
[2017-12-05 22:25] LABS: HEMATOCRIT 29.2 % (38.0-50.0); HEMOGLOBIN 9.6 G/DL (12.5-16.6); MCH 30.9 PG (29.0-34.0); MCHC 32.9 G/DL (30.0-36.0); MCV 93.9 FL (86-99); PLATELET COUNT 171 K/uL (156-360); RBC DIS.WIDTH-CV 13.2 % (11.8-14.6); RBC DIS.WIDTH-SD 45.4 % (39-53); RED BLOOD COUNT 3.11 M/uL (4.00-5.50); WHITE BLOOD COUNT 7.2 K/uL (4.1-10.2)
[2017-12-05 22:37] LABS: CHLORIDE 104 mEq/L (99-109); POTASSIUM 3.8 mEq/L (3.7-5.4); SODIUM 138 mEq/L (136-147)
[2017-12-05 22:38] LABS: GLUCOSE 89 mg/dL (70-99)
[2017-12-05 22:42] LABS: CREATININE 5.6 mg/dL (0.6-1.3); GFR ESTIMATE (CALCULATED) 11 mL/min/ (58.99-99999)
[2017-12-05 22:43] LABS: UREA NITROGEN (BUN) 28 mg/dL (9-23)
[2017-12-06] VITALS (19 sets, daily range): BP systolic 69–182; BP diastolic 43–107
[2017-12-06 00:01] LABS: APPEARANCE CLEAR ((CLEAR)); BILIRUBIN NEGATIVE; BLOOD SMALL; COLOR YELLOW ((YELLOW)); GLUCOSE (STRIP) NEGATIVE; KETONES NEGATIVE; LEUKOCYTES SMALL; NITRITE NEGATIVE; PROTEIN (STRIP) 30; SPECIFIC GRAVITY 1.011 (1.000-1.030); UROBILINOGEN 0.2 MG/DL (0.2-1.0)
[2017-12-06 00:05] LABS: BACTERIA NONE SEEN /HPF; EPITHELIAL CELLS NONE SEEN /HPF; MUCUS TRACE /LPF; RED BLOOD CELLS 0-5 /HPF (0-5); UCUL ADDED? YES
[2017-12-06 04:02] LABS: BASOPHIL (%) 0.5 % (0-1); EOSINOPHIL (%) 4.9 % (0-5); EOSINOPHIL COUNT 0.3 K/uL (0-0.3); HEMATOCRIT 28.2 % (38.0-50.0); HEMOGLOBIN 9.3 G/DL (12.5-16.6); IMMATURE GRANULOCYTE (%) 0.6 % (0.0-0.7); LYMPHOCYTE (%) 26.6 % (15-42); LYMPHOCYTE COUNT 1.7 K/uL (1.0-2.8); MONOCYTE COUNT 0.4 K/uL (0-0.8); NEUTROPHIL (%) 61.4 % (45-76); NEUTROPHIL COUNT 3.9 K/uL (1.8-6.4); PLATELET COUNT 153 K/uL (156-360); RBC DIS.WIDTH-CV 13.2 % (11.8-14.6); RBC DIS.WIDTH-SD 45.3 % (39-53); WHITE BLOOD COUNT 6.4 K/uL (4.1-10.2)
[2017-12-06 04:15] LABS: CHLORIDE 104 mEq/L (99-109); POTASSIUM 3.9 mEq/L (3.7-5.4); SODIUM 137 mEq/L (136-147)
[2017-12-06 04:16] LABS: GLUCOSE 79 mg/dL (70-99)
[2017-12-06 04:20] LABS: CREATININE 5.7 mg/dL (0.6-1.3); GFR ESTIMATE (CALCULATED) 11 mL/min/ (58.99-99999)
[2017-12-06 04:21] LABS: UREA NITROGEN (BUN) 28 mg/dL (9-23)
[2017-12-06 04:26] LABS: TROP-I INTERPRETATION NEGATIVE; TROPONIN-I 0.05 ng/mL (0.0-0.30)
[2017-12-06 13:09] LABS: GLUCOSE 187 mg/dL (70-99)
[2017-12-06 15:01] LABS: BASE EXCESS 0 mEq/L (-3 to +3); BICARBONATE 25.4 mEq/L (22-26); CARBOXY HGB 1.5 % (0-5); METHEMOGLOBIN 1.3 % (0-1.5); PCO2 44 mm Hg (35-45); PO2 79 mm Hg (80-100); pH 7.37 (7.35-7.45)
[2017-12-06 15:02] LABS: COMMENTS - BLOOD GASES LR; DEVICE RA; FI02 21 %; SITE ALINE; TOTAL RESP RATE 14 resp/min
[2017-12-07] VITALS (15 sets, daily range): BP systolic 85–159; BP diastolic 46–78
[2017-12-07 05:56] LABS: HEMATOCRIT 28.4 % (38.0-50.0); MCH 29.4 PG (29.0-34.0); MCHC 31.7 G/DL (30.0-36.0); MCV 92.8 FL (86-99); PLATELET COUNT 174 K/uL (156-360); RBC DIS.WIDTH-CV 13.2 % (11.8-14.6); RBC DIS.WIDTH-SD 44.7 % (39-53); RED BLOOD COUNT 3.06 M/uL (4.00-5.50)
[2017-12-07 06:18] LABS: ALBUMIN 2.8 G/DL (3.2-4.8); ALKALINE PHOSPHATASE 68 IU/L (3-129); ALT (GPT) 9 IU/L (3-49); AST (GOT) 10 IU/L (2-34); CHLORIDE 96 MEQ/L (99-109); CREATININE 6.3 MG/DL (0.6-1.3); GFR ESTIMATE (CALCULATED) 10 mL/min/ (58.99-99999); GLUCOSE 75 mg/dL (70-99); POTASSIUM 3.8 MEQ/L (3.7-5.4); SODIUM 129 MEQ/L (136-147); TOTAL BILIRUBIN 0.2 MG/DL (0.0-1.0); TOTAL PROTEIN 4.6 G/DL (6.4-8.3); UREA NITROGEN (BUN) 32 mg/dL (9-23)
[2017-12-08] VITALS (19 sets, daily range): BP systolic 65–170; BP diastolic 43–101
[2017-12-08 05:04] LABS: BASOPHIL (%) 0.2 % (0-1); EOSINOPHIL COUNT 0.1 K/uL (0-0.3); HEMATOCRIT 27.6 % (38.0-50.0); HEMOGLOBIN 9.2 G/DL (12.5-16.6); IMMATURE GRANULOCYTE (%) 0.7 % (0.0-0.7); LYMPHOCYTE (%) 20.6 % (15-42); LYMPHOCYTE COUNT 1.2 K/uL (1.0-2.8); MCH 30.4 PG (29.0-34.0); MCHC 33.3 G/DL (30.0-36.0); MCV 91.1 FL (86-99); MONOCYTE (%) 4.8 % (3-12); MONOCYTE COUNT 0.3 K/uL (0-0.8); NEUTROPHIL (%) 71.7 % (45-76); NEUTROPHIL COUNT 4.1 K/uL (1.8-6.4); PLATELET COUNT 195 K/uL (156-360); RBC DIS.WIDTH-CV 13.1 % (11.8-14.6); RBC DIS.WIDTH-SD 42.6 % (39-53); RED BLOOD COUNT 3.03 M/uL (4.00-5.50); WHITE BLOOD COUNT 5.6 K/uL (4.1-10.2)
[2017-12-08 05:25] LABS: CHLORIDE 104 mEq/L (99-109); POTASSIUM 4.4 mEq/L (3.7-5.4)
[2017-12-08 05:26] LABS: MAGNESIUM 1.6 mg/dL (1.3-2.7)
[2017-12-08 05:27] LABS: SODIUM 140 mEq/L (136-147)
[2017-12-08 05:28] LABS: GLUCOSE 113 mg/dL (70-99)
[2017-12-08 05:31] LABS: GFR ESTIMATE (CALCULATED) 15 mL/min/ (58.99-99999); PHOSPHORUS 2.9 mg/dL (2.5-4.9)
[2017-12-08 05:32] LABS: CREATININE 4.4 mg/dL (0.6-1.3); UREA NITROGEN (BUN) 23 mg/dL (9-23)
[2017-12-09 00:08] VITALS: BP 129/72
[2017-12-09 02:27] LABS: TROP-I INTERPRETATION NEGATIVE; TROPONIN-I 0.04 ng/mL (0.0-0.30)
[2017-12-09 03:42] VITALS: BP 126/58
[2017-12-09 07:09] LABS: BASOPHIL (%) 0.2 % (0-1); EOSINOPHIL (%) 1.7 % (0-5); EOSINOPHIL COUNT 0.1 K/uL (0-0.3); HEMATOCRIT 30.5 % (38.0-50.0); HEMOGLOBIN 9.9 G/DL (12.5-16.6); LYMPHOCYTE (%) 20.4 % (15-42); LYMPHOCYTE COUNT 1.2 K/uL (1.0-2.8); MCHC 32.5 G/DL (30.0-36.0); MCV 92.4 FL (86-99); MONOCYTE (%) 4.1 % (3-12); MONOCYTE COUNT 0.3 K/uL (0-0.8); NEUTROPHIL (%) 72.6 % (45-76); NEUTROPHIL COUNT 4.4 K/uL (1.8-6.4); PLATELET COUNT 192 K/uL (156-360); RBC DIS.WIDTH-CV 13.2 % (11.8-14.6); RBC DIS.WIDTH-SD 44.9 % (39-53)
[2017-12-09 07:49] VITALS: BP 106/62
[2017-12-09 10:14] LABS: CHLORIDE 102 MEQ/L (99-109); GFR ESTIMATE (CALCULATED) 11 mL/min/ (58.99-99999); GLUCOSE 101 mg/dL (70-99); SODIUM 139 MEQ/L (136-147)
[2017-12-09 10:16] LABS: CREATININE 5.6 MG/DL (0.6-1.3); UREA NITROGEN (BUN) 35 mg/dL (9-23)
[2017-12-09 15:11] VITALS: BP 140/72
[2017-12-09 19:56] VITALS: BP 94/61
[2017-12-10 00:19] VITALS: BP 138/72
[2017-12-10 06:31] VITALS: BP 126/85
[2017-12-10 10:00] LABS: BASE EXCESS 2.6 mEq/L (-3 to +3); BICARBONATE 27.9 mEq/L (22-26); CARBOXY HGB 1.4 % (0-5); COMMENTS - BLOOD GASES RR; DEVICE NRB; FI02 100 %; METHEMOGLOBIN 1.5 % (0-1.5); PCO2 45 mm Hg (35-45); PO2 345 mm Hg (80-100)
[2017-12-10 10:04] LABS: BASOPHIL (%) 0.3 % (0-1); EOSINOPHIL (%) 2.1 % (0-5); EOSINOPHIL COUNT 0.3 K/uL (0-0.3); HEMOGLOBIN 11.8 G/DL (12.5-16.6); IMMATURE GRANULOCYTE (%) 1.9 % (0.0-0.7); LYMPHOCYTE (%) 30.1 % (15-42); LYMPHOCYTE COUNT 4.8 K/uL (1.0-2.8); MCH 30.3 PG (29.0-34.0); MCHC 33.7 G/DL (30.0-36.0); MONOCYTE (%) 4.1 % (3-12); MONOCYTE COUNT 0.7 K/uL (0-0.8); NEUTROPHIL (%) 61.5 % (45-76); NEUTROPHIL COUNT 9.8 K/uL (1.8-6.4); RBC DIS.WIDTH-CV 13.1 % (11.8-14.6); RBC DIS.WIDTH-SD 42.7 % (39-53); RED BLOOD COUNT 3.89 M/uL (4.00-5.50); WHITE BLOOD COUNT 15.9 K/uL (4.1-10.2)
[2017-12-10 10:10] LABS: PLATELET COUNT 307 K/uL (156-360)
[2017-12-10 10:31] LABS: CHLORIDE 102 mEq/L (99-109); POTASSIUM 3.9 mEq/L (3.7-5.4); SODIUM 140 mEq/L (136-147)
[2017-12-10 10:32] LABS: MAGNESIUM 1.7 mg/dL (1.3-2.7)
[2017-12-10 10:33] LABS: GLUCOSE 149 mg/dL (70-99)
[2017-12-10 10:37] LABS: CREATININE 4.1 mg/dL (0.6-1.3); GFR ESTIMATE (CALCULATED) 16 mL/min/ (58.99-99999); PHOSPHORUS 1.8 mg/dL (2.5-4.9)
[2017-12-10 10:38] LABS: UREA NITROGEN (BUN) 37 mg/dL (9-23)
[2017-12-10 17:30] VITALS: BP 160/94
[2017-12-10 19:18] VITALS: BP 128/89
[2017-12-10 23:42] VITALS: BP 167/97
[2017-12-11] VITALS (8 sets, daily range): BP systolic 115–201; BP diastolic 70–97
[2017-12-11 08:33] LABS: BASOPHIL (%) 0.2 % (0-1); EOSINOPHIL (%) 1.6 % (0-5); EOSINOPHIL COUNT 0.2 K/uL (0-0.3); HEMATOCRIT 32.9 % (38.0-50.0); IMMATURE GRANULOCYTE (%) 1.3 % (0.0-0.7); LYMPHOCYTE (%) 11.6 % (15-42); LYMPHOCYTE COUNT 1.4 K/uL (1.0-2.8); MCH 30.1 PG (29.0-34.0); MCHC 33.4 G/DL (30.0-36.0); MCV 90.1 FL (86-99); MONOCYTE (%) 3.5 % (3-12); MONOCYTE COUNT 0.4 K/uL (0-0.8); NEUTROPHIL (%) 81.8 % (45-76); NEUTROPHIL COUNT 9.6 K/uL (1.8-6.4); PLATELET COUNT 245 K/uL (156-360); RBC DIS.WIDTH-CV 13.4 % (11.8-14.6); RBC DIS.WIDTH-SD 43.8 % (39-53); RED BLOOD COUNT 3.65 M/uL (4.00-5.50); WHITE BLOOD COUNT 11.8 K/uL (4.1-10.2)
[2017-12-11 09:16] LABS: ALBUMIN 3.2 G/DL (3.2-4.8); ALKALINE PHOSPHATASE 78 IU/L (3-129); CHLORIDE 98 MEQ/L (99-109); CREATININE 4.6 MG/DL (0.6-1.3); GFR ESTIMATE (CALCULATED) 14 mL/min/ (58.99-99999); GLUCOSE 118 mg/dL (70-99); POTASSIUM 3.9 MEQ/L (3.7-5.4); SODIUM 137 MEQ/L (136-147); UREA NITROGEN (BUN) 51 mg/dL (9-23)
[2017-12-11 09:17] LABS: ALT (GPT) 18 IU/L (3-49); AST (GOT) 17 IU/L (2-34); TOTAL BILIRUBIN 0.3 MG/DL (0.0-1.0); TOTAL PROTEIN 5.7 G/DL (6.4-8.3)
[2017-12-12 04:38] VITALS: BP 147/70
[2017-12-12 07:37] VITALS: BP 153/71
[2017-12-12 10:51] LABS: BASOPHIL (%) 0.2 % (0-1); EOSINOPHIL (%) 1.6 % (0-5); EOSINOPHIL COUNT 0.2 K/uL (0-0.3); HEMATOCRIT 31.7 % (38.0-50.0); HEMOGLOBIN 10.2 G/DL (12.5-16.6); IMMATURE GRANULOCYTE (%) 1.9 % (0.0-0.7); LYMPHOCYTE (%) 12.9 % (15-42); LYMPHOCYTE COUNT 1.2 K/uL (1.0-2.8); MCH 29.9 PG (29.0-34.0); MCHC 32.2 G/DL (30.0-36.0); MONOCYTE (%) 4.3 % (3-12); MONOCYTE COUNT 0.4 K/uL (0-0.8); NEUTROPHIL (%) 79.1 % (45-76); NEUTROPHIL COUNT 7.6 K/uL (1.8-6.4); PLATELET COUNT 234 K/uL (156-360); RBC DIS.WIDTH-CV 13.3 % (11.8-14.6); RBC DIS.WIDTH-SD 45.6 % (39-53); RED BLOOD COUNT 3.41 M/uL (4.00-5.50); WHITE BLOOD COUNT 9.6 K/uL (4.1-10.2)
[2017-12-12 11:54] VITALS: BP 139/71
[2017-12-12 15:52] VITALS: BP 160/84
[2017-12-12 19:59] VITALS: BP 176/83
[2017-12-13 00:52] VITALS: BP 94/65
[2017-12-13 08:03] VITALS: BP 183/86
[2017-12-13 11:23] VITALS: BP 139/75
[2017-12-13 15:43] VITALS: BP 130/76
[2017-12-13 19:25] VITALS: BP 134/71
[2017-12-14] VITALS (8 sets, daily range): BP systolic 107–205; BP diastolic 55–87
[2017-12-14 08:30] LABS: HEMATOCRIT 28.9 % (38.0-50.0); HEMOGLOBIN 9.7 G/DL (12.5-16.6); MCH 30.7 PG (29.0-34.0); MCHC 33.6 G/DL (30.0-36.0); MCV 91.5 FL (86-99); PLATELET COUNT 220 K/uL (156-360); RBC DIS.WIDTH-CV 13.5 % (11.8-14.6); RBC DIS.WIDTH-SD 45.3 % (39-53); RED BLOOD COUNT 3.16 M/uL (4.00-5.50); WHITE BLOOD COUNT 7.6 K/uL (4.1-10.2)
[2017-12-14 08:56] LABS: ALBUMIN 3.3 G/DL (3.2-4.8); CHLORIDE 100 MEQ/L (99-109); GFR ESTIMATE (CALCULATED) 12 mL/min/ (58.99-99999); PHOSPHORUS 2.5 mg/dL (2.5-4.9); POTASSIUM 3.6 MEQ/L (3.7-5.4); SODIUM 137 MEQ/L (136-147); UREA NITROGEN (BUN) 67 mg/dL (9-23)
[2017-12-14 09:02] LABS: CREATININE 5.4 MG/DL (0.6-1.3); GLUCOSE 187 mg/dL (70-99)
[2017-12-15 04:00] VITALS: BP 138/77
[2017-12-15 07:44] VITALS: BP 149/74
[2017-12-15 11:58] VITALS: BP 156/69
[2017-12-15 16:19] VITALS: BP 140/80
[2017-12-15 20:04] VITALS: BP 118/67
[2017-12-16] VITALS (9 sets, daily range): BP systolic 101–210; BP diastolic 11–97
[2017-12-16 14:04] LABS: BASOPHIL (%) 0.2 % (0-1); EOSINOPHIL (%) 0.7 % (0-5); EOSINOPHIL COUNT 0.1 K/uL (0-0.3); HEMATOCRIT 30.2 % (38.0-50.0); HEMOGLOBIN 10.2 G/DL (12.5-16.6); LYMPHOCYTE (%) 19.9 % (15-42); LYMPHOCYTE COUNT 1.8 K/uL (1.0-2.8); MCH 30.3 PG (29.0-34.0); MCHC 33.8 G/DL (30.0-36.0); MCV 89.6 FL (86-99); MONOCYTE (%) 4.7 % (3-12); MONOCYTE COUNT 0.4 K/uL (0-0.8); NEUTROPHIL (%) 72.5 % (45-76); NEUTROPHIL COUNT 6.6 K/uL (1.8-6.4); PLATELET COUNT 228 K/uL (156-360); RBC DIS.WIDTH-CV 13.8 % (11.8-14.6); RBC DIS.WIDTH-SD 45.1 % (39-53); RED BLOOD COUNT 3.37 M/uL (4.00-5.50)
[2017-12-16 14:22] LABS: ALBUMIN 3.4 G/DL (3.2-4.8); CHLORIDE 98 MEQ/L (99-109); CREATININE 4.9 MG/DL (0.6-1.3); GFR ESTIMATE (CALCULATED) 13 mL/min/ (58.99-99999); PHOSPHORUS 2.1 mg/dL (2.5-4.9); SODIUM 136 MEQ/L (136-147); UREA NITROGEN (BUN) 61 mg/dL (9-23)
[2017-12-16 14:23] LABS: GLUCOSE 120 mg/dL (70-99); POTASSIUM 4.9 MEQ/L (3.7-5.4)
[2017-12-16] MEDS ORDERED: CALCIUM ACETAT667 MG GT (14:47)
[2017-12-16] MEDS ORDERED: PREDNISONE5 MG PO (14:54)
[2017-12-17 07:20] VITALS: BP 210/100
[2017-12-17 07:45] VITALS: BP 160/90
[2017-12-17 09:00] VITALS: BP 160/90
[2017-12-17 10:41] VITALS: BP 107/68
[2017-12-17 12:12] VITALS: BP 123/71
[2017-12-18] MEDS ORDERED: PHILLIPS'400 MG/5 M PO (00:34)
[2017-12-18] MEDS ORDERED: DULCOLAX10 MG PR (00:34)
[2017-12-18] MEDS ORDERED: FLEET ENEMA-AD118 ML PR (00:34)
[2017-12-18] MEDS ORDERED: PREDNISONE5 MG PO ×3 (00:36→00:38)
== END 2017-12-17 15:50 | DRG 312 ==
LOC: EME 14:20 → EDOF 19:38 → ENRESERV 19:40 → CANRESERV 20:16 → ENRESERV 20:16 → EDOF 12-06 00:30 → 4WEST 12-06 00:30 → EDOF 12-06 00:30 → ENRESERV 12-06 00:32 → 4WEST 12-06 01:04 → ENRESERV 12-08 07:52 → 5SOUTH 12-08 17:28
PROVIDERS: Emergency Medicine; Family Medicine; Hospitalist; Internal Medicine; Internal Medicine Nephrology; Obstetrics & Gynecology
PROC: 05HM33Z Insertion of Infusion Device into Right Internal Jugular Vein, Percutaneous Approach (ICD-10-PCS; 2017-12-05)
PROC: 5A1D70Z Performance of Urinary Filtration, Intermittent, Less than 6 Hours Per Day (ICD-10-PCS; principal; 2017-12-07)
PROC: 05PY33Z Removal of Infusion Device from Upper Vein, Percutaneous Approach (ICD-10-PCS; 2017-12-15)
DX: I95.1 Orthostatic hypotension (principal); I13.2 Hypertensive heart and chronic kidney disease with heart failure and with stage 5 chronic kidney disease, or end stage renal disease; I50.42 Chronic combined systolic (congestive) and diastolic (congestive) heart failure; I69.354 Hemiplegia and hemiparesis following cerebral infarction affecting left non-dominant side; N18.6 End stage renal disease; I25.10 Atherosclerotic heart disease of native coronary artery without angina pectoris; E78.5 Hyperlipidemia, unspecified; Z93.1 Gastrostomy status; Z99.2 Dependence on renal dialysis; R64 Cachexia; I42.0 Dilated cardiomyopathy; G40.409 Other generalized epilepsy and epileptic syndromes, not intractable, without status epilepticus; E16.2 Hypoglycemia, unspecified; I69.322 Dysarthria following cerebral infarction; I71.4 Abdominal aortic aneurysm, without rupture; D63.1 Anemia in chronic kidney disease; E86.0 Dehydration; F17.200 Nicotine dependence, unspecified, uncomplicated; F32.9 Major depressive disorder, single episode, unspecified; I70.209 Unspecified atherosclerosis of native arteries of extremities, unspecified extremity; K59.00 Constipation, unspecified; N25.81 Secondary hyperparathyroidism of renal origin; Z79.82 Long term (current) use of aspirin; Z79.899 Other long term (current) drug therapy; Z95.810 Presence of automatic (implantable) cardiac defibrillator
CPT/HCPCS: 36600; 36620; 70450; 71045; 71275; 74174; 80048; 80048 91; 80053; 80069; 80202; 81003; 82533 91; 82803; 82948; 83605; 83735; 84100; 84484; 84999; 85025; 85027; 85610; 87040; 87086; 87641; 93005; 94799; 95819; 97530 GP; 99281; 99285; G0378; J1644; J1720; J1956; J2060; J3370; J7040; J7120

== ENCOUNTER 2017-12-17 22:53 | Inpatient (IN) | payer OTHER ==
[~2017-12-17] VITALS: Ht 177.8 cm; Wt 73.1 kg
[~2017-12-17 22:53] MED LIST changes: +CALCIUM ACETAT667 MG GT; +PREDNISONE5 MG PO
[2017-12-17 23:08] LABS: HEMOGLOBIN 10.7 G/DL (12.5-16.6); MCH 31.1 PG (29.0-34.0); MCHC 34.5 G/DL (30.0-36.0); MCV 90.1 FL (86-99); PLATELET COUNT 230 K/uL (156-360); RBC DIS.WIDTH-CV 13.9 % (11.8-14.6); RED BLOOD COUNT 3.44 M/uL (4.00-5.50); WHITE BLOOD COUNT 12.4 K/uL (4.1-10.2)
[2017-12-17 23:18] LABS: ALBUMIN 3.7 g/dL (3.2-4.8); PTT 26.8 SEC (25-37)
[2017-12-17 23:19] LABS: CHLORIDE 99 mEq/L (99-109); POTASSIUM 4.3 mEq/L (3.7-5.4); SODIUM 140 mEq/L (136-147)
[2017-12-17 23:21] LABS: GLUCOSE 91 mg/dL (70-99); TOTAL PROTEIN 6.4 g/dL (6.4-8.3)
[2017-12-17 23:23] LABS: TOTAL BILIRUBIN 0.4 mg/dL (0.0-1.0)
[2017-12-17 23:24] LABS: ALKALINE PHOSPHATASE 92 IU/L (3-129)
[2017-12-17 23:25] LABS: CREATININE 4.4 mg/dL (0.6-1.3); GFR ESTIMATE (CALCULATED) 15 mL/min/ (58.99-99999)
[2017-12-17 23:26] LABS: AST (GOT) 24 IU/L (2-34); UREA NITROGEN (BUN) 47 mg/dL (9-23)
[2017-12-17 23:27] LABS: ALT (GPT) 47 IU/L (3-49)
[2017-12-17 23:28] LABS: LIPASE 28 U/L (1.0-51.0)
[2017-12-17 23:29] LABS: TROP-I INTERPRETATION NEGATIVE; TROPONIN-I 0.06 ng/mL (0.0-0.30)
[2017-12-18] MEDS ORDERED: FLEET ENEMA-AD118 ML PR (00:34)
[2017-12-18] MEDS ORDERED: PHILLIPS'400 MG/5 M PO (00:34)
[2017-12-18] MEDS ORDERED: DULCOLAX10 MG PR (00:34)
[2017-12-18] MEDS ORDERED: PREDNISONE5 MG PO ×3 (00:36→00:38)
[2017-12-18 03:08] VITALS: BP 113/59
[2017-12-18 06:03] LABS: HDL CHOLESTEROL 56 MG/DL (Desirable>=40); LDL CHOLESTEROL 44 mg/dL (Desirable<100); NON-HDL CHOLESTEROL 68 mg/dL (Desirable<160); TOTAL CHOLESTEROL 124 mg/dL (Desirable<200); TRIGLYCERIDES 120 MG/DL (Normal: <150)
[2017-12-18 07:30] VITALS: BP 95/60
[2017-12-18 09:35] VITALS: BP 82/51
[2017-12-18 10:32] VITALS: BP 134/62
[2017-12-18 10:43] LABS: HEMOGLOBIN A1c (GLYCOHEMOGLOB) 5.3 % (Below 5.7)
[2017-12-18 13:34] LABS: BASOPHIL (%) 0.2 % (0-1); EOSINOPHIL COUNT 0.3 K/uL (0-0.3); HEMATOCRIT 30.4 % (38.0-50.0); LYMPHOCYTE (%) 25.7 % (15-42); LYMPHOCYTE COUNT 2.2 K/uL (1.0-2.8); MCH 29.9 PG (29.0-34.0); MCHC 32.9 G/DL (30.0-36.0); MCV 90.7 FL (86-99); MONOCYTE (%) 4.3 % (3-12); MONOCYTE COUNT 0.4 K/uL (0-0.8); NEUTROPHIL (%) 64.8 % (45-76); NEUTROPHIL COUNT 5.4 K/uL (1.8-6.4); PLATELET COUNT 214 K/uL (156-360); RBC DIS.WIDTH-CV 14.1 % (11.8-14.6); RBC DIS.WIDTH-SD 46.5 % (39-53); RED BLOOD COUNT 3.35 M/uL (4.00-5.50); WHITE BLOOD COUNT 8.4 K/uL (4.1-10.2)
[2017-12-18 13:53] LABS: ALBUMIN 3.2 G/DL (3.2-4.8); CHLORIDE 100 MEQ/L (99-109); CREATININE 4.6 MG/DL (0.6-1.3); GFR ESTIMATE (CALCULATED) 14 mL/min/ (58.99-99999); PHOSPHORUS 2.7 mg/dL (2.5-4.9); POTASSIUM 3.6 MEQ/L (3.7-5.4); SODIUM 136 MEQ/L (136-147); UREA NITROGEN (BUN) 45 mg/dL (9-23)
[2017-12-18 13:55] LABS: GLUCOSE 53 mg/dL (70-99)
[2017-12-18 19:00] VITALS: BP 139/80
[2017-12-18 19:27] LABS: GLUCOSE 165 mg/dL (70-99)
[2017-12-19] VITALS (7 sets, daily range): BP systolic 73–107; BP diastolic 47–63
[2017-12-19 11:33] LABS: CHLORIDE 100 MEQ/L (99-109); MAGNESIUM 1.8 mg/dl (1.3-2.7); POTASSIUM 4.1 MEQ/L (3.7-5.4); SODIUM 137 MEQ/L (136-147)
[2017-12-19 11:54] LABS: GFR ESTIMATE (CALCULATED) 19 mL/min/ (58.99-99999); GLUCOSE 151 mg/dL (70-99); UREA NITROGEN (BUN) 32 mg/dL (9-23)
[2017-12-19 12:02] LABS: CREATININE 3.5 MG/DL (0.6-1.3)
[2017-12-20] VITALS (7 sets, daily range): BP systolic 85–126; BP diastolic 51–66
[2017-12-20 05:54] LABS: CHLORIDE 101 MEQ/L (99-109); CREATININE 4.8 MG/DL (0.6-1.3); GFR ESTIMATE (CALCULATED) 13 mL/min/ (58.99-99999); GLUCOSE 120 mg/dL (70-99); POTASSIUM 4.1 MEQ/L (3.7-5.4); SODIUM 136 MEQ/L (136-147); UREA NITROGEN (BUN) 49 mg/dL (9-23)
[2017-12-21 03:25] VITALS: BP 103/56
[2017-12-21 08:54] LABS: BASOPHIL (%) 0.1 % (0-1); EOSINOPHIL (%) 3.3 % (0-5); EOSINOPHIL COUNT 0.3 K/uL (0-0.3); HEMATOCRIT 25.1 % (38.0-50.0); HEMOGLOBIN 8.2 G/DL (12.5-16.6); IMMATURE GRANULOCYTE (%) 1.3 % (0.0-0.7); LYMPHOCYTE (%) 29.4 % (15-42); LYMPHOCYTE COUNT 2.8 K/uL (1.0-2.8); MCH 30.3 PG (29.0-34.0); MCHC 32.7 G/DL (30.0-36.0); MCV 92.6 FL (86-99); MONOCYTE (%) 4.7 % (3-12); MONOCYTE COUNT 0.5 K/uL (0-0.8); NEUTROPHIL (%) 61.2 % (45-76); NEUTROPHIL COUNT 5.9 K/uL (1.8-6.4); PLATELET COUNT 177 K/uL (156-360); RBC DIS.WIDTH-CV 14.5 % (11.8-14.6); RBC DIS.WIDTH-SD 48.6 % (39-53); RED BLOOD COUNT 2.71 M/uL (4.00-5.50); WHITE BLOOD COUNT 9.6 K/uL (4.1-10.2)
[2017-12-21 09:07] LABS: ALBUMIN 2.9 G/DL (3.2-4.8); CHLORIDE 100 MEQ/L (99-109); POTASSIUM 3.7 MEQ/L (3.7-5.4); SODIUM 134 MEQ/L (136-147)
[2017-12-21 09:17] LABS: CREATININE 5.8 MG/DL (0.6-1.3); GFR ESTIMATE (CALCULATED) 11 mL/min/ (58.99-99999); GLUCOSE 91 mg/dL (70-99); PHOSPHORUS 1.5 mg/dL (2.5-4.9); UREA NITROGEN (BUN) 73 mg/dL (9-23)
[2017-12-21 12:00] VITALS: BP 139/66
[2017-12-21] MEDS ORDERED: MIDODRINE HCL5 MG GT ×2 (12:14→17:16)
[2017-12-21] MEDS ORDERED: FLUOXETINE HCL20 M1 PO ×2 (12:15→17:16)
[2017-12-21 15:51] VITALS: BP 105/56
== END 2017-12-21 17:36 | disposition home or self-care (01) | DRG 640 ==
LOC: EME 22:53 → EDOF 12-18 00:46 → ENRESERV 12-18 01:01 → 5WEST 12-18 02:50 → 4EAST 12-18 10:37 → 5WEST 12-18 10:37 → ENRESERV 12-18 10:39 → 4EAST 12-18 18:50 → ENRESERV 12-19 14:20 → 3EAST 12-19 16:16
PROVIDERS: Emergency Medicine; Hospitalist; Internal Medicine Nephrology; Physician Assistant Medical
PROC: 5A1D70Z Performance of Urinary Filtration, Intermittent, Less than 6 Hours Per Day (ICD-10-PCS; principal; 2017-12-18)
DX: E16.2 Hypoglycemia, unspecified (principal); G93.41 Metabolic encephalopathy; R09.89 Other specified symptoms and signs involving the circulatory and respiratory systems; I13.2 Hypertensive heart and chronic kidney disease with heart failure and with stage 5 chronic kidney disease, or end stage renal disease; R53.83 Other fatigue; N18.9 Chronic kidney disease, unspecified; I25.10 Atherosclerotic heart disease of native coronary artery without angina pectoris; I50.42 Chronic combined systolic (congestive) and diastolic (congestive) heart failure; E78.5 Hyperlipidemia, unspecified; I71.4 Abdominal aortic aneurysm, without rupture; R13.12 Dysphagia, oropharyngeal phase; N18.6 End stage renal disease; I70.1 Atherosclerosis of renal artery; D72.829 Elevated white blood cell count, unspecified; I42.9 Cardiomyopathy, unspecified; F32.9 Major depressive disorder, single episode, unspecified; D63.1 Anemia in chronic kidney disease; G40.909 Epilepsy, unspecified, not intractable, without status epilepticus; I73.9 Peripheral vascular disease, unspecified; Z79.82 Long term (current) use of aspirin; I69.354 Hemiplegia and hemiparesis following cerebral infarction affecting left non-dominant side; Z87.891 Personal history of nicotine dependence; Z68.1 Body mass index [BMI] 19.9 or less, adult; Z95.810 Presence of automatic (implantable) cardiac defibrillator; Z93.1 Gastrostomy status; Z99.2 Dependence on renal dialysis; Z79.899 Other long term (current) drug therapy; Z83.3 Family history of diabetes mellitus; Z82.5 Family history of asthma and other chronic lower respiratory diseases
CPT/HCPCS: 70450; 74176; 80048; 80048 91; 80053; 80061; 80069; 82533 91; 82948; 83036; 83525; 83690; 83735; 84305 90; 84484; 84681; 84999; 85025; 85027; 85610; 85730; 87040; 87641; 93005; 99281; 99285; G8978 GP CM; G8979 GP CM; G8987 GO CL; G8988 GO CK; J0881; J1644; J1720; J7030; J7040; J7050; J7512

== ENCOUNTER 2018-03-26 13:07 | Day surgery (SDC) | payer OTHER ==
[~2018-03-26] VITALS: Ht 177.8 cm; Wt 65.0 kg
[~2018-03-26 13:07] MED LIST changes: +DULCOLAX10 MG PR; +FLEET ENEMA-AD118 ML PR; +MIDODRINE HCL5 MG GT; +PHILLIPS'400 MG/5 M PO; +RENAL-VITE TAB0.8 MG PO; +RENVELA800 MG GT; +ZITHROMAX Z-PA250 MG PO
[2018-03-26 13:44] LABS: HEMATOCRIT 37.9 % (38.0-50.0); HEMOGLOBIN 12.2 G/DL (12.5-16.6); MCH 29.9 PG (29.0-34.0); MCHC 32.2 G/DL (30.0-36.0); MCV 92.9 FL (86-99); PLATELET COUNT 256 K/uL (156-360); RBC DIS.WIDTH-CV 14.3 % (11.8-14.6); RBC DIS.WIDTH-SD 47.8 % (39-53); RED BLOOD COUNT 4.08 M/uL (4.00-5.50)
[2018-03-26 14:07] LABS: CHLORIDE 102 MEQ/L (99-109); CREATININE 6.5 MG/DL (0.6-1.3); GFR ESTIMATE (CALCULATED) 9 mL/min/ (58.99-99999); GLUCOSE 91 mg/dL (70-99); POTASSIUM 3.5 MEQ/L (3.7-5.4); SODIUM 143 MEQ/L (136-147); UREA NITROGEN (BUN) 55 mg/dL (9-23)
[2018-03-26 14:09] VITALS: BP 208/101
[2018-03-26 16:13] VITALS: BP 198/89
[2018-03-27] VITALS: BP 153/73
== END 2018-03-27 00:48 | disposition home or self-care (01) ==
LOC: SDC 13:07 → 2EAST 21:30 → ENRESERV 23:06 → 2EAST 03-27 00:48
PROVIDERS: Surgery
DX: T82.858A Stenosis of other vascular prosthetic devices, implants and grafts, initial encounter (principal); T82.868A Thrombosis due to vascular prosthetic devices, implants and grafts, initial encounter; I12.0 Hypertensive chronic kidney disease with stage 5 chronic kidney disease or end stage renal disease; N18.6 End stage renal disease; Z99.2 Dependence on renal dialysis; E78.5 Hyperlipidemia, unspecified; I25.10 Atherosclerotic heart disease of native coronary artery without angina pectoris; Z86.73 Personal history of transient ischemic attack (TIA), and cerebral infarction without residual deficits; G40.409 Other generalized epilepsy and epileptic syndromes, not intractable, without status epilepticus; Z98.890 Other specified postprocedural states; Z95.0 Presence of cardiac pacemaker; Z79.82 Long term (current) use of aspirin; F17.200 Nicotine dependence, unspecified, uncomplicated; Z82.3 Family history of stroke; Z82.0 Family history of epilepsy and other diseases of the nervous system; Z82.5 Family history of asthma and other chronic lower respiratory diseases; Y83.2 Surgical operation with anastomosis, bypass or graft as the cause of abnormal reaction of the patient, or of later complication, without mention of misadventure at the time of the procedure
CPT/HCPCS: 80048; 85027; 87641; 94640; C1725; C1769; C1894; G0378; J0690; J1644; J2250; J3010

== ENCOUNTER 2018-04-05 18:29 | Inpatient (IN) | payer OTHER ==
[~2018-04-05] VITALS: Ht 177.8 cm; Wt 84.0 kg
[2018-04-05 19:37] LABS: HEMATOCRIT 35.9 % (38.0-50.0); HEMOGLOBIN 12.5 G/DL (12.5-16.6); MCHC 34.8 G/DL (30.0-36.0); MCV 89.1 FL (86-99); PLATELET COUNT 248 K/uL (156-360); RBC DIS.WIDTH-CV 13.6 % (11.8-14.6); RBC DIS.WIDTH-SD 43.9 % (39-53); RED BLOOD COUNT 4.03 M/uL (4.00-5.50)
[2018-04-05 19:52] LABS: ALBUMIN 4.1 g/dL (3.2-4.8)
[2018-04-05 19:53] LABS: CHLORIDE 92 mEq/L (99-109); POTASSIUM 3.4 mEq/L (3.7-5.4); SODIUM 135 mEq/L (136-147)
[2018-04-05 19:56] LABS: GLUCOSE 114 mg/dL (70-99); TOTAL PROTEIN 7.2 g/dL (6.4-8.3)
[2018-04-05 19:57] LABS: TOTAL BILIRUBIN 0.3 mg/dL (0.0-1.0)
[2018-04-05 19:58] LABS: ALKALINE PHOSPHATASE 110 IU/L (3-129); INTER. NORMALIZED RATIO 1.2
[2018-04-05 19:59] LABS: CREATININE 3.6 mg/dL (0.6-1.3); GFR ESTIMATE (CALCULATED) 19 mL/min/ (58.99-99999)
[2018-04-05 20:00] LABS: AST (GOT) 10 IU/L (2-34); UREA NITROGEN (BUN) 21 mg/dL (9-23)
[2018-04-05 20:01] LABS: ALT (GPT) 7 IU/L (3-49); PTT 30.5 SEC (25-37)
[2018-04-05 20:02] LABS: LIPASE 10 U/L (1.0-51.0)
[2018-04-05 20:04] LABS: TROP-I INTERPRETATION NEGATIVE; TROPONIN-I 0.04 ng/mL (0.0-0.30)
[2018-04-05 23:10] VITALS: BP 148/106
[2018-04-05 23:30] VITALS: BP 148/106
[2018-04-06] VITALS (23 sets, daily range): BP systolic 86–216; BP diastolic 62–134
[2018-04-06] MEDS ORDERED: MIRTAZAPINE15 MG PO (00:32)
[2018-04-06] MEDS ORDERED: RENVELA0.8 GM PO (00:32)
[2018-04-06] MEDS ORDERED: LISINOPRIL20 MG PO (00:33)
[2018-04-06] MEDS ORDERED: PROAMATINE5 MG PO (00:35)
[2018-04-06] MEDS ORDERED: MIRTAZAPINE15 M1 PO (00:35)
[2018-04-06] MEDS ORDERED: FLUOXETINE HCL20 MG PO (00:36)
[2018-04-06] MEDS ORDERED: LYRICA25 MG PO (00:36)
[2018-04-06] MEDS ORDERED: SEVELAMER CARB2.4 GM GT (00:38)
[2018-04-06] MEDS ORDERED: MUCINEX1200 MG PO (00:45)
[2018-04-06 00:52] LABS: TROP-I INTERPRETATION NEGATIVE; TROPONIN-I 0.06 ng/mL (0.0-0.30)
[2018-04-06 07:24] LABS: HEMOGLOBIN 12.4 G/DL (12.5-16.6); MCH 30.2 PG (29.0-34.0); MCHC 33.5 G/DL (30.0-36.0); PLATELET COUNT 247 K/uL (156-360); RBC DIS.WIDTH-SD 45.4 % (39-53); RED BLOOD COUNT 4.11 M/uL (4.00-5.50)
[2018-04-06 07:48] LABS: CHLORIDE 94 MEQ/L (99-109); CREATININE 4.3 MG/DL (0.6-1.3); GFR ESTIMATE (CALCULATED) 15 mL/min/ (58.99-99999); GLUCOSE 108 mg/dL (70-99); POTASSIUM 3.7 MEQ/L (3.7-5.4); SODIUM 138 MEQ/L (136-147); UREA NITROGEN (BUN) 26 mg/dL (9-23)
[2018-04-06 07:52] LABS: TROP-I INTERPRETATION NEGATIVE; TROPONIN-I 0.15 ng/mL (0.0-0.30)
[2018-04-07 04:35] VITALS: BP 71/52
[2018-04-07 04:58] VITALS: BP 90/53
[2018-04-07 05:26] LABS: ALBUMIN 3.9 g/dL (3.2-4.8)
[2018-04-07 05:27] LABS: CHLORIDE 97 mEq/L (99-109); POTASSIUM 3.5 mEq/L (3.7-5.4); SODIUM 139 mEq/L (136-147)
[2018-04-07 05:28] VITALS: BP 117/64
[2018-04-07 05:29] LABS: GLUCOSE 85 mg/dL (70-99); TOTAL PROTEIN 6.7 g/dL (6.4-8.3)
[2018-04-07 05:31] LABS: TOTAL BILIRUBIN 0.3 mg/dL (0.0-1.0)
[2018-04-07 05:32] LABS: ALKALINE PHOSPHATASE 101 IU/L (3-129)
[2018-04-07 05:33] LABS: GFR ESTIMATE (CALCULATED) 11 mL/min/ (58.99-99999)
[2018-04-07 05:34] LABS: AST (GOT) 13 IU/L (2-34); CREATININE 5.6 mg/dL (0.6-1.3); UREA NITROGEN (BUN) 32 mg/dL (9-23)
[2018-04-07 05:35] LABS: ALT (GPT) 7 IU/L (3-49)
[2018-04-07 05:39] LABS: TROP-I INTERPRETATION INDETERMINATE; TROPONIN-I 0.34 ng/mL (0.0-0.30)
[2018-04-07 05:42] LABS: BASOPHIL (%) 0.9 % (0-1); BASOPHIL COUNT 0.1 K/uL (0-0.1); EOSINOPHIL (%) 4.2 % (0-5); EOSINOPHIL COUNT 0.3 K/uL (0-0.3); HEMATOCRIT 34.2 % (38.0-50.0); HEMOGLOBIN 11.7 G/DL (12.5-16.6); IMMATURE GRANULOCYTE (%) 0.4 % (0.0-0.7); LYMPHOCYTE (%) 30.2 % (15-42); LYMPHOCYTE COUNT 2.3 K/uL (1.0-2.8); MCH 31.6 PG (29.0-34.0); MCHC 34.2 G/DL (30.0-36.0); MCV 92.4 FL (86-99); MONOCYTE COUNT 0.5 K/uL (0-0.8); NEUTROPHIL (%) 58.3 % (45-76); NEUTROPHIL COUNT 4.4 K/uL (1.8-6.4); PLATELET COUNT 238 K/uL (156-360); RBC DIS.WIDTH-CV 14.1 % (11.8-14.6); RBC DIS.WIDTH-SD 47.2 % (39-53); WHITE BLOOD COUNT 7.5 K/uL (4.1-10.2)
[2018-04-07 07:00] VITALS: BP 112/81
[2018-04-07 17:00] VITALS: BP 113/74
[2018-04-07 20:15] VITALS: BP 103/62
[2018-04-08] VITALS (7 sets, daily range): BP systolic 84–113; BP diastolic 46–66
[2018-04-08 10:45] LABS: BASOPHIL (%) 0.6 % (0-1); BASOPHIL COUNT 0.1 K/uL (0-0.1); EOSINOPHIL (%) 3.6 % (0-5); EOSINOPHIL COUNT 0.3 K/uL (0-0.3); HEMATOCRIT 33.3 % (38.0-50.0); IMMATURE GRANULOCYTE (%) 0.4 % (0.0-0.7); LYMPHOCYTE (%) 18.5 % (15-42); LYMPHOCYTE COUNT 1.5 K/uL (1.0-2.8); MCH 30.6 PG (29.0-34.0); MCV 92.5 FL (86-99); MONOCYTE (%) 5.7 % (3-12); MONOCYTE COUNT 0.5 K/uL (0-0.8); NEUTROPHIL (%) 71.2 % (45-76); NEUTROPHIL COUNT 5.8 K/uL (1.8-6.4); PLATELET COUNT 241 K/uL (156-360); RBC DIS.WIDTH-CV 14.3 % (11.8-14.6); RBC DIS.WIDTH-SD 47.7 % (39-53); WHITE BLOOD COUNT 8.1 K/uL (4.1-10.2)
[2018-04-08 11:05] LABS: CHLORIDE 97 MEQ/L (99-109); POTASSIUM 3.6 MEQ/L (3.7-5.4); SODIUM 137 MEQ/L (136-147)
[2018-04-08 11:13] LABS: GFR ESTIMATE (CALCULATED) 8 mL/min/ (58.99-99999); GLUCOSE 80 mg/dL (70-99); UREA NITROGEN (BUN) 40 mg/dL (9-23)
[2018-04-08 11:20] LABS: CREATININE 7.4 MG/DL (0.6-1.3)
[2018-04-09 04:34] VITALS: BP 100/60
[2018-04-09 08:30] VITALS: BP 102/57
[2018-04-09 12:30] VITALS: BP 101/62
[2018-04-09 15:52] VITALS: BP 83/62
[2018-04-09 20:00] VITALS: BP 103/64
[2018-04-10] VITALS (7 sets, daily range): BP systolic 97–131; BP diastolic 56–86
[2018-04-10 08:12] LABS: ABSOLUTE RETICULOCYTE CT. 0.03 M/uL (0.02-0.08); HEMATOCRIT 36.7 % (38.0-50.0); HEMOGLOBIN 11.7 G/DL (12.5-16.6); IMM.RETIC FRACTION 6.9 % (3-19); MCH 30.2 PG (29.0-34.0); MCHC 31.9 G/DL (30.0-36.0); MCV 94.6 FL (86-99); PLATELET COUNT 235 K/uL (156-360); RBC DIS.WIDTH-CV 14.2 % (11.8-14.6); RBC DIS.WIDTH-SD 48.3 % (39-53); RED BLOOD COUNT 3.88 M/uL (4.00-5.50); RETIC HGB EQUIVALENT 33.7 (28-36); RETICULOCYTE COUNT 0.8 % (0.5-1.8)
[2018-04-10 09:39] LABS: CHLORIDE 91 MEQ/L (99-109); CREATININE 7.6 MG/DL (0.6-1.3); GFR ESTIMATE (CALCULATED) 8 mL/min/ (58.99-99999); GLUCOSE 117 mg/dL (70-99); IRON 76 MCG/DL (35-150); POTASSIUM 3.6 MEQ/L (3.7-5.4); SODIUM 139 MEQ/L (136-147); TRANSFERRIN (TIBC) 150.4 mg/dL (215-380); TRANSFERRIN SATUR. 51 % (20-55); UREA NITROGEN (BUN) 45 mg/dL (9-23)
[2018-04-10 10:20] LABS: FERRITIN 1770 NG/ML (22-322)
[2018-04-11 03:24] VITALS: BP 99/63
[2018-04-11 07:20] VITALS: BP 106/61
[2018-04-11 11:17] VITALS: BP 120/72
[2018-04-11 11:59] LABS: BASOPHIL (%) 0.7 % (0-1); BASOPHIL COUNT 0.1 K/uL (0-0.1); EOSINOPHIL (%) 4.4 % (0-5); EOSINOPHIL COUNT 0.4 K/uL (0-0.3); HEMOGLOBIN 11.6 G/DL (12.5-16.6); IMMATURE GRANULOCYTE (%) 0.6 % (0.0-0.7); LYMPHOCYTE COUNT 1.4 K/uL (1.0-2.8); MCH 30.9 PG (29.0-34.0); MCHC 33.1 G/DL (30.0-36.0); MCV 93.3 FL (86-99); MONOCYTE (%) 6.2 % (3-12); MONOCYTE COUNT 0.5 K/uL (0-0.8); NEUTROPHIL (%) 72.1 % (45-76); NEUTROPHIL COUNT 6.2 K/uL (1.8-6.4); PLATELET COUNT 240 K/uL (156-360); RBC DIS.WIDTH-CV 13.9 % (11.8-14.6); RBC DIS.WIDTH-SD 47.1 % (39-53); RED BLOOD COUNT 3.75 M/uL (4.00-5.50); WHITE BLOOD COUNT 8.6 K/uL (4.1-10.2)
[2018-04-11 12:08] LABS: ALBUMIN 3.8 g/dL (3.2-4.8)
[2018-04-11 12:09] LABS: POTASSIUM 3.7 mEq/L (3.7-5.4); SODIUM 135 mEq/L (136-147)
[2018-04-11 12:11] LABS: GLUCOSE 95 mg/dL (70-99); TOTAL PROTEIN 6.4 g/dL (6.4-8.3)
[2018-04-11 12:13] LABS: CHLORIDE 87 mEq/L (99-109)
[2018-04-11 12:14] LABS: ALKALINE PHOSPHATASE 103 IU/L (3-129)
[2018-04-11 12:15] LABS: CREATININE 8.4 mg/dL (0.6-1.3); GFR ESTIMATE (CALCULATED) 7 mL/min/ (58.99-99999); TOTAL BILIRUBIN 0.4 mg/dL (0.0-1.0)
[2018-04-11 12:16] LABS: AST (GOT) 11 IU/L (2-34); UREA NITROGEN (BUN) 61 mg/dL (9-23)
[2018-04-11 12:18] LABS: ALT (GPT) 7 IU/L (3-49)
[2018-04-11 16:21] VITALS: BP 111/61
[2018-04-11 20:22] VITALS: BP 128/62
[2018-04-12 00:20] VITALS: BP 128/63
[2018-04-12 03:15] VITALS: BP 110/54
[2018-04-12 07:35] LABS: BASOPHIL (%) 0.4 % (0-1); EOSINOPHIL (%) 4.2 % (0-5); EOSINOPHIL COUNT 0.3 K/uL (0-0.3); HEMATOCRIT 34.6 % (38.0-50.0); HEMOGLOBIN 11.4 G/DL (12.5-16.6); IMMATURE GRANULOCYTE (%) 0.6 % (0.0-0.7); LYMPHOCYTE (%) 19.3 % (15-42); LYMPHOCYTE COUNT 1.4 K/uL (1.0-2.8); MCH 30.1 PG (29.0-34.0); MCHC 32.9 G/DL (30.0-36.0); MCV 91.3 FL (86-99); MONOCYTE (%) 5.8 % (3-12); MONOCYTE COUNT 0.4 K/uL (0-0.8); NEUTROPHIL (%) 69.7 % (45-76); NEUTROPHIL COUNT 4.9 K/uL (1.8-6.4); PLATELET COUNT 210 K/uL (156-360); RBC DIS.WIDTH-CV 13.7 % (11.8-14.6); RBC DIS.WIDTH-SD 45.1 % (39-53); RED BLOOD COUNT 3.79 M/uL (4.00-5.50); WHITE BLOOD COUNT 7.1 K/uL (4.1-10.2)
[2018-04-12 07:43] LABS: CHLORIDE 86 MEQ/L (99-109); CREATININE 8.1 MG/DL (0.6-1.3); GFR ESTIMATE (CALCULATED) 7 mL/min/ (58.99-99999); POTASSIUM 3.9 MEQ/L (3.7-5.4); SODIUM 132 MEQ/L (136-147); UREA NITROGEN (BUN) 69 mg/dL (9-23)
[2018-04-12 07:44] LABS: GLUCOSE 183 mg/dL (70-99)
[2018-04-12 13:05] VITALS: BP 116/57
[2018-04-12 19:45] VITALS: BP 141/86
[2018-04-13] VITALS (9 sets, daily range): BP systolic 131–171; BP diastolic 69–96
[2018-04-13 12:13] LABS: GLUCOSE 207 mg/dL (70-99)
[2018-04-13 22:12] LABS: COMMENTS - BLOOD GASES C+
[2018-04-13 22:13] LABS: BASE EXCESS 11.3 mEq/L (-3 to +3); BICARBONATE 35.9 mEq/L (22-26); CARBOXY HGB 1.5 % (0-5); METHEMOGLOBIN 0.8 % (0-1.5); O2 SATURATION (CALCULATED) 95.3 % (95-99); PCO2 46 mm Hg (35-45); PO2 62 mm Hg (80-100); SITE LBR
[2018-04-14] VITALS (7 sets, daily range): BP systolic 105–161; BP diastolic 63–88
[2018-04-14 06:11] LABS: POTASSIUM 4.3 MEQ/L (3.7-5.4); UREA NITROGEN (BUN) 43 mg/dL (9-23)
[2018-04-14 06:19] LABS: CREATININE 5.6 MG/DL (0.6-1.3); GFR ESTIMATE (CALCULATED) 11 mL/min/ (58.99-99999); GLUCOSE 92 mg/dL (70-99)
[2018-04-14 06:20] LABS: CHLORIDE 100 MEQ/L (99-109); SODIUM 140 MEQ/L (136-147)
[2018-04-15 03:56] VITALS: BP 150/78
[2018-04-15 04:53] VITALS: BP 138/76
[2018-04-15 07:13] VITALS: BP 135/83
[2018-04-15] MEDS ORDERED: AMLODIPINE BESYL5 MG PO (11:29)
[2018-04-15] MEDS ORDERED: LISINOPRIL10 MG PO (11:31)
[2018-04-15 11:50] VITALS: BP 154/99
== END 2018-04-15 15:20 | disposition home health service (06) | DRG 304 ==
LOC: EME 18:29 → EDOF 21:59 → 4WEST 21:59 → ENRESERV 22:02 → 4WEST 23:08 → ENRESERV 04-06 16:58 → 4EAST 04-06 18:16
PROVIDERS: Emergency Medicine; Hospitalist; Internal Medicine; Internal Medicine Nephrology; Surgery
PROC: HZ2ZZZZ Detoxification Services for Substance Abuse Treatment (ICD-10-PCS; 2018-04-05)
PROC: 5A1D70Z Performance of Urinary Filtration, Intermittent, Less than 6 Hours Per Day (ICD-10-PCS; principal; 2018-04-08)
DX: I16.1 Hypertensive emergency (principal); G93.40 Encephalopathy, unspecified; N18.6 End stage renal disease; I69.354 Hemiplegia and hemiparesis following cerebral infarction affecting left non-dominant side; Z68.1 Body mass index [BMI] 19.9 or less, adult; F33.9 Major depressive disorder, recurrent, unspecified; F05 Delirium due to known physiological condition; F02.81 Dementia in other diseases classified elsewhere, unspecified severity, with behavioral disturbance; F10.231 Alcohol dependence with withdrawal delirium; I71.4 Abdominal aortic aneurysm, without rupture; I70.1 Atherosclerosis of renal artery; I71.2 Thoracic aortic aneurysm, without rupture; I71.6 Thoracoabdominal aortic aneurysm, without rupture; R32 Unspecified urinary incontinence; F17.210 Nicotine dependence, cigarettes, uncomplicated; I25.10 Atherosclerotic heart disease of native coronary artery without angina pectoris; I95.1 Orthostatic hypotension; R13.10 Dysphagia, unspecified; E16.2 Hypoglycemia, unspecified; E78.5 Hyperlipidemia, unspecified; G30.9 Alzheimer's disease, unspecified; G40.409 Other generalized epilepsy and epileptic syndromes, not intractable, without status epilepticus; I73.9 Peripheral vascular disease, unspecified; F41.9 Anxiety disorder, unspecified; I13.11 Hypertensive heart and chronic kidney disease without heart failure, with stage 5 chronic kidney disease, or end stage renal disease; D63.1 Anemia in chronic kidney disease; Y90.9 Presence of alcohol in blood, level not specified; I69.391 Dysphagia following cerebral infarction; I69.320 Aphasia following cerebral infarction; Z79.82 Long term (current) use of aspirin; Z86.79 Personal history of other diseases of the circulatory system; Z91.81 History of falling; Z93.1 Gastrostomy status; Z99.2 Dependence on renal dialysis; Z95.810 Presence of automatic (implantable) cardiac defibrillator; Z91.041 Radiographic dye allergy status; Z88.0 Allergy status to penicillin; Z82.0 Family history of epilepsy and other diseases of the nervous system; Z82.3 Family history of stroke; Z82.5 Family history of asthma and other chronic lower respiratory diseases; Z83.3 Family history of diabetes mellitus
CPT/HCPCS: 36600; 70450; 71045; 71275; 72125; 74174; 74230; 80048; 80053; 82607; 82728; 82746; 82948; 83540; 83605; 83690; 83735; 84466; 84484; 84999; 85025; 85025 91; 85027; 85046; 85610; 85730; 86850; 86900; 86901; 87040; 87641; 92526 GN; 92610 GN; 92611 GN; 93005; 93990; 94799; 95819; 99281; 99285; A6214; J0360; J1270; J1630; J1644; J2060; J7030; J7040; J7042; J7050; S0028

== ENCOUNTER 2018-05-05 17:08 | Emergency (ER) | payer OTHER ==
[~2018-05-05] VITALS: Ht 180.3 cm; Wt 64.5 kg
[~2018-05-05 17:08] MED LIST changes: +AMLODIPINE BESYL5 MG PO; +FLUOXETINE HCL20 MG PO; +LISINOPRIL10 MG PO; +LISINOPRIL20 MG PO; +MIRTAZAPINE15 M1 PO; +MUCINEX1200 MG PO; +PROAMATINE5 MG PO; +RENVELA0.8 GM PO; +SEVELAMER CARB2.4 GM GT
[2018-05-05 18:23] LABS: HEMATOCRIT 33.2 % (38.0-50.0); HEMOGLOBIN 11.1 G/DL (12.5-16.6); MCH 30.8 PG (29.0-34.0); MCHC 33.4 G/DL (30.0-36.0); MCV 92.2 FL (86-99); PLATELET COUNT 220 K/uL (156-360); RBC DIS.WIDTH-CV 14.8 % (11.8-14.6); RBC DIS.WIDTH-SD 48.6 % (39-53); WHITE BLOOD COUNT 5.4 K/uL (4.1-10.2)
[2018-05-05 18:32] LABS: ALBUMIN 3.8 g/dL (3.2-4.8); CHLORIDE 95 mEq/L (99-109); SODIUM 143 mEq/L (136-147)
[2018-05-05 18:34] LABS: GLUCOSE 110 mg/dL (70-99); TOTAL PROTEIN 6.7 g/dL (6.4-8.3)
[2018-05-05 18:36] LABS: TOTAL BILIRUBIN 0.4 mg/dL (0.0-1.0)
[2018-05-05 18:38] LABS: ALKALINE PHOSPHATASE 112 IU/L (3-129); CREATININE 7.9 mg/dL (0.6-1.3); GFR ESTIMATE (CALCULATED) 8 mL/min/ (58.99-99999)
[2018-05-05 18:39] LABS: AST (GOT) 9 IU/L (2-34); UREA NITROGEN (BUN) 48 mg/dL (9-23)
[2018-05-05 18:41] LABS: ALT (GPT) 8 IU/L (3-49); LIPASE 26 U/L (1.0-51.0)
[2018-05-05 23:30] VITALS: BP 162/98
== END 2018-05-05 23:31 | disposition home or self-care (01) ==
LOC: EME 17:08
DX: R10.9 Unspecified abdominal pain (principal); I71.4 Abdominal aortic aneurysm, without rupture; Z87.442 Personal history of urinary calculi; E78.5 Hyperlipidemia, unspecified; Z86.73 Personal history of transient ischemic attack (TIA), and cerebral infarction without residual deficits; Z95.0 Presence of cardiac pacemaker; F17.200 Nicotine dependence, unspecified, uncomplicated; Z79.82 Long term (current) use of aspirin; Z88.0 Allergy status to penicillin; Z99.2 Dependence on renal dialysis; Z93.1 Gastrostomy status
CPT/HCPCS: 71275; 74174; 74175; 80053; 81003; 83605; 83690; 85027; 99281; 99285

== ENCOUNTER 2018-05-08 17:38 | Emergency (ER) | payer OTHER ==
[~2018-05-08] VITALS: Ht 180.3 cm; Wt 65.9 kg
[2018-05-08 18:23] LABS: HEMATOCRIT 36.4 % (38.0-50.0); HEMOGLOBIN 11.9 G/DL (12.5-16.6); MCH 30.4 PG (29.0-34.0); MCHC 32.7 G/DL (30.0-36.0); MCV 92.9 FL (86-99); RBC DIS.WIDTH-CV 14.9 % (11.8-14.6); RBC DIS.WIDTH-SD 50.3 % (39-53); RED BLOOD COUNT 3.92 M/uL (4.00-5.50); WHITE BLOOD COUNT 6.2 K/uL (4.1-10.2)
[2018-05-08 18:31] LABS: ALBUMIN 4.1 g/dL (3.2-4.8); CHLORIDE 89 mEq/L (99-109); POTASSIUM 3.3 mEq/L (3.7-5.4); SODIUM 141 mEq/L (136-147)
[2018-05-08 18:33] LABS: GLUCOSE 118 mg/dL (70-99)
[2018-05-08 18:34] LABS: TOTAL PROTEIN 7.2 g/dL (6.4-8.3)
[2018-05-08 18:36] LABS: TOTAL BILIRUBIN 0.5 mg/dL (0.0-1.0)
[2018-05-08 18:37] LABS: ALKALINE PHOSPHATASE 114 IU/L (3-129); GFR ESTIMATE (CALCULATED) 9 mL/min/ (58.99-99999); PLATELET COUNT 287 K/uL (156-360)
[2018-05-08 18:38] LABS: UREA NITROGEN (BUN) 24 mg/dL (9-23)
[2018-05-08 18:39] LABS: AST (GOT) 12 IU/L (2-34)
[2018-05-08 18:40] LABS: ALT (GPT) 7 IU/L (3-49); CREATININE 6.5 mg/dL (0.6-1.3); LIPASE 7 U/L (1.0-51.0)
[2018-05-08] MEDS ORDERED: ULTRAM50 MG PO (22:00)
[2018-05-08 22:53] VITALS: BP 113/63
== END 2018-05-08 22:56 | disposition home or self-care (01) ==
LOC: EME 17:38
DX: R10.9 Unspecified abdominal pain (principal); I99.8 Other disorder of circulatory system; M54.9 Dorsalgia, unspecified; N18.6 End stage renal disease; Z99.2 Dependence on renal dialysis; R94.31 Abnormal electrocardiogram [ECG] [EKG]; E78.5 Hyperlipidemia, unspecified; Z95.811 Presence of heart assist device; Z79.82 Long term (current) use of aspirin; Z86.73 Personal history of transient ischemic attack (TIA), and cerebral infarction without residual deficits; Z87.442 Personal history of urinary calculi; Z88.0 Allergy status to penicillin; F17.200 Nicotine dependence, unspecified, uncomplicated
CPT/HCPCS: 80053; 81003; 83690; 85027; 93005; 99281; 99284